=== PATIENT | female | born 1960 | race Caucasian/White ===

== ENCOUNTER 2021-03-07 20:04 | Inpatient (IN) ==
[2021-03-07] MEDS ORDERED: SODIUM CHLORIDE 0.9% 1000ML 2,000 ML IV SCH (21:00)
[2021-03-07 21:08] LABS: Basophils # (auto) 0.02 K/uL (0-0.2); Basophils % (auto) 0.1 %; Eosinophils # (auto) 0.05 K/uL (0-0.5); Eosinophils % (auto) 0.3 %; Hematocrit (blood only) 39.2 % (37-47); Hemoglobin 13.9 g/dL (12.0-16.0); Immature Granulocytes # (auto) 0.26 K/uL (0.00-0.02); Immature Granulocytes % (auto) 1.7 %; Lymphocytes # (auto) 2.32 K/uL (1.2-3.4); Lymphocytes % (auto) 14.9 %; Mean Corpuscular Hemoglobin 34.9 pg (25-34); Mean Corpuscular Hgb Conc 35.5 g/dL (32-36); Mean Corpuscular Volume 98.5 fL (80-100); Mean Platelet Volume 9.3 fL (7.4-10.4); Monocytes % (auto) 10.9 %; Neutrophils # (auto) 11.23 K/uL (1.4-6.5); Neutrophils % (auto) 72.1 %; Platelet Count 450 K/uL (130-400); RDW Coefficient of Variation 13.6 % (11.5-14.5); RDW Standard Deviation 49.5 fL (36.4-46.3); Red Blood Count 3.98 M/uL (4.2-5.4); White Blood Count 15.58 K/uL (4.8-10.8)
--- NOTE | 2021-03-07 21:32 | Emergency Department Note ---
History of Present Illness General Chief complaint: Hypotension Stated complaint: STOMACH PAINS, LOW BLOOD PRESSURE, DIARRHEA Time Seen by Provider: 03/07/21 20:38 Source: patient Mode of arrival: ambulatory Limitations: no limitations History of Present Illness Provider complaint: Low blood pressure/dizziness Maximum Pain Intensity: 2 61-year-old female presents to the ED with a chief complaint of decreased blood pressure and dizziness. The patient states that she had really bad diarrhea on Saturday and of last week. She states it was mostly watery. She states that she had gone about 30 times each of those days. She states that her diarrhea has decreased over the past several days and today she only had one episode of diarrhea this morning. She states that she has been feeling lightheaded especially with getting up. She came into the ED for evaluation tonight at the advice of her daughter who is a physician admissions assistant. Home Medications Medication Instructions Recorded Confirmed Type aspirin 81 mg tablet,delayed 81 mg PO DAILY 03/02/19 03/07/21 History release acetaminophen 500 mg tablet 500 - 1,000 mg PO DIRECTED PRN 04/14/19 03/07/21 History tab cholecalciferol (vitamin D3) 50 2,000 units PO DAILY cap 05/09/19 03/07/21 History mcg (2,000 unit) capsule cyanocobalamin (vitamin B-12) 500 500 mcg PO DAILY tab 05/09/19 03/07/21 History mcg tablet amlodipine 10 mg tablet 10 mg PO HS #90 tab 11/14/20 03/07/21 Rx telmisartan 80 mg tablet 80 mg PO DAILY #90 tab 11/14/20 03/07/21 Rx hydrochlorothiazide 25 mg tablet 25 mg PO DAILY #90 tab 11/23/20 03/07/21 Rx bupropion HCl 150 mg 24 hr tablet, 150 mg PO QAM #7 tab 12/05/20 03/07/21 Rx extended release escitalopram oxalate 10 mg tablet 10 mg PO DAILY #30 tab 12/05/20 03/07/21 Rx albuterol sulfate 90 mcg/actuation 2 puff INHALATION Q4H PRN #8.5 g 01/26/21 03/07/21 Rx aerosol inhaler metoprolol succinate 50 mg 50 mg PO DAILY #90 tab 03/01/21 03/07/21 Rx tablet,extended release 24 hr trazodone 50 mg tablet 50 mg PO HS #90 tab 03/01/21 03/07/21 Rx atorvastatin 20 mg PO HS 03/07/21 03/07/21 History Allergies Allergy/AdvReac Type Severity Reaction Status Date / Time aspirin AdvReac Intermediate HIGHER Verified 03/07/21 22:06 DOSES--HIVES, LOW DOSE--OK Past Med/Surg History Medical History (Updated 03/07/21 @ 23:43 by Barry Hsu DO) Abnormal glucose Abnormal mammography Abnormal TSH Allergic rhinitis Anxiety Arthritis Benign essential hypertension Dyslipidemia History of abnormal mammogram History of muscle pain Intra-articular fracture of distal end of radius with volar angulation Left wrist fracture Macrocytic anemia Surgical History H/O section History of tonsillectomy 1975 S/P dilation and curettage S/P tonsillectomy Family History Mother Hypertension Pancreatic cancer Father Hypertension Other Patient's mother is Denies family history of Colon cancer Ovarian cancer Prostate cancer Myocardial infarction Breast cancer Social History Smoking Status: Current every day smoker Tobacco Type: Cigarettes Age Started Using Tobacco: 15; packs per day: 1; Second Hand Exposure: No; Hx Alcohol Use: Yes Alcohol type: wine Alcohol Intake Frequency: 2-3 x/Week Alcohol Intake Frequency Comment: wine Hx Substance Use: No Preferred Language: [place] Communication Ability: Effective Visual Impairment: Limited Hearing Ability: Normal Derrick Helper Required: No Beliefs That Will Affect Care: None marital status: Current Living Situation: Spouse current occupational status: employed current occupation: [employer] How many Children do You have: 2 Feels Safe at Home: Yes Childhood Exposure to Second-Hand Smoke: No caffeine: Yes during the past year weight has: remained stable Dental Care, Regularly: Yes Physical Activity Frequency: Daily Seatbelt Use: always Sunscreen Use: Yes Review of Systems A total of 10 systems reviewed and were otherwise negative Physical Exam Vital Signs Vital Signs - 24 hr 03/07/21 20:07 03/07/21 20:09 03/07/21 20:46 Temperature 36.1 C L Temperature Source Temporal Artery Scan Pulse Rate 68 74 Pulse Rate from SpO2 Sensor 77 Respiratory Rate 20 23 Blood Pressure 77/54 L 93/46 L Blood Pressure [Left Arm] Blood Pressure Mean 61 61 Blood Pressure Mean [Left Arm] Pulse Oximetry 95 97 Oxygen Delivery Method Room Air Room Air Sepsis Recent Fever Within 48 Hours No Sepsis New/Unexplained Change in Mental Status No Sepsis Action Taken by Nursing No Action Required 03/07/21 20:53 03/07/21 21:11 03/07/21 23:12 Temperature Temperature Source Pulse Rate 72 72 Pulse Rate from SpO2 Sensor 72 78 Respiratory Rate 24 22 21 Blood Pressure 114/55 L 167/74 H Blood Pressure [Left Arm] 114/55 L Blood Pressure Mean 74 105 Blood Pressure Mean [Left Arm] 74 Pulse Oximetry 97 98 98 Oxygen Delivery Method Room Air Sepsis Recent Fever Within 48 Hours Sepsis New/Unexplained Change in Mental Status Sepsis Action Taken by Nursing CONSTITUTIONAL/VITAL SIGNS: Reviewed / noted above. GENERAL: Non-toxic in appearance. INTEGUMENTARY: Warm, dry, and [place]. HEAD: Normocephalic. EYES: without scleral icterus or trauma. ENT/OROPHARYNX: clear and moist. LYMPHADENOPATHY/NECK: Is supple without lymphadenopathy or meningismus. RESPIRATORY: Lungs clear and equal. CARDIOVASCULAR: Regular rate and rhythm. GI/ABDOMEN: Soft and nontender. No organomegaly or pulsatile mass. No rebound or guarding. Normal bowel sounds. EXTREMITIES: Warm and well perfused. BACK: No CVA tenderness. NEUROLOGICAL: Intact without focal deficits. PSYCHIATRIC: normal affect. MUSCULOSKELETAL: Normally developed with good muscle tone. TRIAGE NURSING DOCUMENTATION REVIEWED. Course Administered Medications Discontinued Medications Sodium Chloride (Nss 1000ml) 2,000 mls @ 999 mls/hr IV .Q2H1M [facility] Stop: 03/07/21 23:00 Last Admin: 03/07/21 21:12 Dose: 999 mls/hr Documented by: [id number] Magnesium Sulfate/Dextrose (Magnesium Sulfate / D5w) 1 gm in 100 mls @ 100 mls/hr IV NOW STA Stop: 03/07/21 22:59 Last Infusion: 03/07/21 23:20 Dose: 0 mls/hr Documented by: [id number] Admin: 03/07/21 22:16 Dose: 100 mls/hr Documented by: [id number] Potassium Chloride (Potassium Chloride 10 Meq Tabcr) 40 meq PO NOW STA Stop: 03/07/21 22:15 Last Admin: 03/07/21 22:19 Dose: 40 meq Documented by: [id number] Critical Care Time Critical Care Time: Yes Total Critical Care Time: 30 I have personally spent 30 minutes of critical care time in the direct francesca gement of this patient. This includes bedside care, interpretation of diagnostic studies, and testing, discussion with consultants, patient, and family members, and other required patient management activities. This 30 minutes is in excess of all separately billable procedures. Medical Decision Making Differential Diagnosis Differential includes acute coronary syndrome, myocardial infarction, CVA, TIA, anemia, infection, pneumonia, UTI, pyelonephritis, poor nutrition, dehydration, electrolyte disturbance,hypoglycemia. Medical Records Attestation: I reviewed the patient's medical records. Home Medications Current Medication List: was personally reviewed by me Laboratory Data Attestation: I reviewed the patient's lab results. Result diagrams: 03/07/21 21:00 03/07/21 21:00 Lab Results 03/07/21 03/07/21 03/07/21 Range/Units 21:00 21:00 21:00 WBC 15.58 H (4.8-10.8) K/uL RBC 3.98 L (4.2-5.4) M/uL Hgb 13.9 (12.0-16.0) g/dL Hct 39.2 (37-47) % MCV 98.5 (80-100) fL MCH 34.9 H (25-34) pg MCHC 35.5 (32-36) g/dL RDW Std Deviation 49.5 H (36.4-46.3) fL RDW Coeff of Man 13.6 (11.5-14.5) % Plt Count 450 H (130-400) K/uL MPV 9.3 (7.4-10.4) fL Immature Gran % (Auto) 1.7 % Neut % (Auto) 72.1 % Lymph % (Auto) 14.9 % [place] % (Auto) 10.9 % Eos % (Auto) 0.3 % Baso % (Auto) 0.1 % Neut # (Auto) 11.23 H (1.4-6.5) K/uL Lymph # (Auto) 2.32 (1.2-3.4) K/uL [place] # (Auto) 1.70 H (0.11-0.59) K/uL Eos # (Auto) 0.05 (0-0.5) K/uL Baso # (Auto) 0.02 (0-0.2) K/uL Immature Gran # (Auto) 0.26 H (0.00-0.02) K/uL Sodium 131 L (136-145) mmol/L Potassium 3.0 L (3.5-5.1) mmol/L Chloride 99 (98-107) mmol/L Carbon Dioxide 16 L (21-32) mmol/L Anion Gap 16.0 H (3-11) BUN 63 H (7-18) mg/dl Creatinine 4.70 H* (0.6-1.2) mg/dl Est Cr Clr Drug Dosing 10.6 ml/min Est GFR ( Amer) 10.7 ml/min Est GFR (Non-Af Amer) 9.2 ml/min BUN/Creatinine Ratio 13.3 (10-20) Glucose 131 H (70-99) mg/dl Calcium 9.1 (8.5-10.1) mg/dl Magnesium 0.9 L* (1.8-2.4) mg/dl Total Bilirubin 1.0 (0.2-1) mg/dl AST 1733 H (15-37) U/L ALT 1844 H (12-78) U/L Alkaline Phosphatase 104 (45-117) U/L Total Creatine Kinase 108 (26-192) U/L Troponin I < 0.015 (0-0.045) ng/ml Total Protein 8.0 (6.4-8.2) gm/dl Albumin 3.8 (3.4-5.0) gm/dl Globulin 4.2 H (2.5-4.0) gm/dl Albumin/Globulin Ratio 0.9 (0.9-2) Lipase 1007 H (73-393) U/L TSH 0.707 (0.300-4.500) uIu/ml COVID-19 Eval Order SARS-CoV-2 (PCR) (Negative) 03/07/21 03/07/21 Range/Units 22:25 22:25 WBC (4.8-10.8) K/uL RBC (4.2-5.4) M/uL Hgb (12.0-16.0) g/dL Hct (37-47) % MCV (80-100) fL MCH (25-34) pg MCHC (32-36) g/dL RDW Std Deviation (36.4-46.3) fL RDW Coeff of Man (11.5-14.5) % Plt Count (130-400) K/uL MPV (7.4-10.4) fL Immature Gran % (Auto) % Neut % (Auto) % Lymph % (Auto) % [place] % (Auto) % Eos % (Auto) % Baso % (Auto) % Neut # (Auto) (1.4-6.5) K/uL Lymph # (Auto) (1.2-3.4) K/uL [place] # (Auto) (0.11-0.59) K/uL Eos # (Auto) (0-0.5) K/uL Baso # (Auto) (0-0.2) K/uL Immature Gran # (Auto) (0.00-0.02) K/uL Sodium (136-145) mmol/L Potassium (3.5-5.1) mmol/L Chloride (98-107) mmol/L Carbon Dioxide (21-32) mmol/L Anion Gap (3-11) BUN (7-18) mg/dl Creatinine (0.6-1.2) mg/dl Est Cr Clr Drug Dosing ml/min Est GFR ( Amer) ml/min Est GFR (Non-Af Amer) ml/min BUN/Creatinine Ratio (10-20) Glucose (70-99) mg/dl Calcium (8.5-10.1) mg/dl Magnesium (1.8-2.4) mg/dl Total Bilirubin (0.2-1) mg/dl AST (15-37) U/L ALT (12-78) U/L Alkaline Phosphatase (45-117) U/L Total Creatine Kinase (26-192) U/L Troponin I (0-0.045) ng/ml Total Protein (6.4-8.2) gm/dl Albumin (3.4-5.0) gm/dl Globulin (2.5-4.0) gm/dl Albumin/Globulin Ratio (0.9-2) Lipase (73-393) U/L TSH (0.300-4.500) uIu/ml COVID-19 Eval Order Covid19 at [facility] SARS-CoV-2 (PCR) NEGATIVE (Negative) Imaging Data Radiologist's Impression: CT scan of the abdomen pelvis shows gallbladder sludge. Hypodensities in the liver measuring up to 1.2 cm. ECG Data Attestation: I personally reviewed and interpreted this ECG as follows: Indication: + weakness Rate (beats per minute): 78 Rhythm: + normal sinus ECG Intervals/blocks: + Normal QT-c ECG ST segments: + T-wave inversions (Inferior and lateral) ECG Findings: no PVCs Blood Pressure Blood Pressure Findings: Low blood pressure MDM Narrative Patient presents to the ED with orthostatic hypotension. Her blood pressure dropped to 64 systolic standing from 90 lying. Her main complaint was diarrhea over the past less than week. Twelve-lead EKG shows a normal sinus rhythm with a rate of 78. T wave inversions noted in the inferior lateral leads. White blood cell count is 15.5. Potassium is 3. Anion gap is 16. BUN is 63. Creatinine is 4.7. Magnesium is 0.9. Troponin was negative. AST and ALT are 17 [address]. Lipase was 1000. CT scan of the abdomen pelvis shows some gallbladder sludge. The patient was told the results of the test. She was given 2 L normal saline IV here in the ED. She was given some IV magnesium and some oral potassium. The patient will be seen by the hospitalist for further inpatient evaluation and care. The patient reports that she does take Tylenol regularly and drinks a moderate amount of alcohol about twice a week. Impression & Plan Acute renal failure, Acute dehydration, Diarrhea, Transaminitis, Hypomagnesemia, Acute hypokalemia Discharge Plan Visit Data Chief Complaint: Hypotension Stated Complaint: STOMACH PAINS, LOW BLOOD PRESSURE, DIARRHEA ED Provider: Barry Hsu Discharge Problem: Acute renal failure, Acute dehydration, Diarrhea, Transaminitis, Hypomagnesemia, Acute hypokalemia Patient Disposition: Being Evaluated by Hospitalist Forms Stand Alone Forms: My [facility] [employer] Prescriptions Prescriptions: No Action amlodipine 10 mg tablet 10 mg PO HS Qty: 90 RF: 1 telmisartan 80 mg tablet 80 mg PO DAILY Qty: 90 RF: 1 hydrochlorothiazide 25 mg tablet 25 mg PO DAILY Qty: 90 RF: 1 albuterol sulfate 90 mcg/actuation HFA aerosol inhaler 2 puff inhalation Q4H PRN (Reason: shortness of breath) Qty: 8.5 RF: 3 metoprolol succinate 50 mg tablet extended release 24 hr 50 mg PO DAILY Qty: 90 RF: 1 trazodone 50 mg tablet 50 mg PO HS Qty: 90 RF: 1 aspirin [Adult Low Dose Aspirin] 81 mg tablet,delayed release (DR/EC) 81 mg PO DAILY RF: 0 acetaminophen 500 mg tablet 500 - 1,000 mg PO DIRECTED PRN (Reason: fever or pain) RF: 0 cyanocobalamin (vitamin B-12) 500 mcg tablet 500 mcg PO DAILY RF: 0 cholecalciferol (vitamin D3) 2,000 unit capsule 2,000 units PO DAILY RF: 0 escitalopram oxalate 10 mg tablet 10 mg PO DAILY Qty: 30 RF: 2 bupropion HCl 150 mg tablet extended release 24 hr 150 mg PO QAM Qty: 7 RF: 0 atorvastatin 20 mg tablet 20 mg PO HS RF: 0 Referrals Referrals: Vicki Mckeon DO [Primary Care Provider] - Discharge Problem: Acute renal failure Qualifiers: Acute renal failure type: unspecified Qualified Code(s): N17.9 - Acute kidney failure, unspecified Diarrhea Qualifiers: Diarrhea type: unspecified type Qualified Code(s): R19.7 - Diarrhea, unspecified
[2021-03-07 21:38] LABS: Alanine Aminotransferase 1844 U/L (12-78); Albumin Globulin Ratio 0.9 (0.9-2); Albumin Level 3.8 gm/dl (3.4-5.0); Alkaline Phosphatase 104 U/L (45-117); Aspartate Aminotransferase 1733 U/L (15-37); BUN Creatinine Ratio 13.3 (10-20); Blood Urea Nitrogen 63 mg/dl (7-18); Calcium 9.1 mg/dl (8.5-10.1); Carbon Dioxide 16 mmol/L (21-32); Chloride 99 mmol/L (98-107); Creatine Kinase 108 U/L (26-192); Creatinine Clr Calc Pharmacy 10.6 ml/min; Est GFR (African American) 10.7 ml/min; Est GFR (Non-African American) 9.2 ml/min; Globulin 4.2 gm/dl (2.5-4.0); Glucose 131 mg/dl (70-99); Magnesium 0.9 mg/dl (1.8-2.4); Sodium 131 mmol/L (136-145); Thyroid Stimulating Hormone 0.707 uIu/ml (0.300-4.500); Troponin I < 0.015 ng/ml (0-0.045)
[2021-03-07] MEDS ORDERED: MAGNESIUM SULFATE / D5W 1 GM/100 ML BAG IV STA (22:00)
[2021-03-07] MEDS ORDERED: POTASSIUM CHLORIDE 10 MEQ TABCR PO STA (22:14)
--- NOTE | 2021-03-07 23:42 | History & Physical Report ---
Date of Service March 07, 2021 Assessment & Plan (1) Gallbladder sludge: Gallbladder sludge noted on CT/transaminitis/right upper quadrant pain radiating toward the back/ elevated lipase- Likely acalculus gallstone pancreatitis NPO Order HIDA scan NM Liver lesions up to 1.2 cm in size noted on CT Unable to order MRCP due to acute renal failure Zosyn 4.5 g IV every 8 hours Famotidine 20 mg IV every 12 hours Follow serial CBC with differential, chemistry profile and lipase levels Present on Admission?: Yes (2) Transaminitis: See above Present on Admission?: Yes (3) Pancreatitis: See above Present on Admission?: Yes (4) Benign essential hypertension: Hold amlodipine, aspirin, metoprolol succinate and telmisartan while n.p.o. Present on Admission?: Yes (5) Dyslipidemia: While n.p.o., hold atorvastatin Present on Admission?: Yes (6) Depression: While n.p.o., hold Lexapro, bupropion and trazodone Present on Admission?: Yes (7) COPD (chronic obstructive pulmonary disease): COPD/tobacco use disorder- Placed on NicoDerm patch 14 mg daily DuoNebs every 2 hours as needed Present on Admission?: Yes (8) Acute renal failure: Hold HCTZ and telmisartan. Acute renal failure likely a combination of prerenal state due to diarrhea, will continue to take HCTZ and telmisartan. Creatinine 4.70 upon admission, with baseline 0.96 Follow daily BMP Present on Admission?: Yes (9) Acute hypokalemia: Given a one-time dose of Klor-Con 40 mEq by the ED. Hold on additional replacement due to elevated creatinine Repeat BMP in a.m. Present on Admission?: Yes History of Present Illness Chief Complaint: The patient presents to the emergency department with complaint of low blood pressure, dizziness, right upper quadrant abdominal pain which radiates around to the side and back, and has had diarrhea over the past week. Primary Care Provider: Vicki Mckeon DO The patient is a 61-year-old female with a past medical history including intra- articular fracture of the distal end of the left radius with volar angulation, macrocytic anemia, dyslipidemia, hypertension, anxiety, allergic rhinitis and arthritis. She presents with symptoms as noted above. She reports that she has had right upper quadrant and right sided back pain on and off for 5 years. She came to the emergency department today at the insistence of her daughter, who is a PA. Work-up in the emergency department included the following significant abnormal laboratories: WBC 15.58, sodium 131, potassium 3.0, creatinine 4.70, BUN 63, AST 1733, ALT 1844, lipase 1007, magnesium 0.9. Imaging studies: CT of abdomen and pelvis without contrast revealed the foll owing: Gallbladder sludge. Hypodensities in the liver measuring up to 1.2 cm that are indeterminate, with recommendation for liver protocol CT or MRI on a nonemergent basis. Allergies Allergy/AdvReac Type Severity Reaction Status Date / Time aspirin AdvReac Intermediate HIGHER Verified 03/07/21 22:06 DOSES--HIVES, LOW DOSE--OK Home Medications Medication Instructions Recorded Confirmed Type aspirin 81 mg tablet,delayed 81 mg PO DAILY 03/02/19 03/07/21 History release acetaminophen 500 mg tablet 500 - 1,000 mg PO DIRECTED PRN 04/14/19 03/07/21 History tab cholecalciferol (vitamin D3) 50 2,000 units PO DAILY cap 05/09/19 03/07/21 History mcg (2,000 unit) capsule cyanocobalamin (vitamin B-12) 500 500 mcg PO DAILY tab 05/09/19 03/07/21 History mcg tablet amlodipine 10 mg tablet 10 mg PO HS #90 tab 11/14/20 03/07/21 Rx telmisartan 80 mg tablet 80 mg PO DAILY #90 tab 11/14/20 03/07/21 Rx hydrochlorothiazide 25 mg tablet 25 mg PO DAILY #90 tab 11/23/20 03/07/21 Rx bupropion HCl 150 mg 24 hr tablet, 150 mg PO QAM #7 tab 12/05/20 03/07/21 Rx extended release escitalopram oxalate 10 mg tablet 10 mg PO DAILY #30 tab 12/05/20 03/07/21 Rx albuterol sulfate 90 mcg/actuation 2 puff INHALATION Q4H PRN #8.5 g 01/26/21 03/07/21 Rx aerosol inhaler metoprolol succinate 50 mg 50 mg PO DAILY #90 tab 03/01/21 03/07/21 Rx tablet,extended release 24 hr trazodone 50 mg tablet 50 mg PO HS #90 tab 03/01/21 03/07/21 Rx atorvastatin 20 mg PO HS 03/07/21 03/07/21 History Past Med/Surg History Medical History (Updated 03/08/21 @ 00:22 by Terrance Retana MD) Abnormal glucose Abnormal mammography Abnormal TSH Allergic rhinitis Anxiety Arthritis Benign essential hypertension Dyslipidemia History of abnormal mammogram History of muscle pain Intra-articular fracture of distal end of radius with volar angulation Left wrist fracture Macrocytic anemia Surgical History H/O section History of tonsillectomy 1975 S/P dilation and curettage S/P tonsillectomy Family History Mother Hypertension Pancreatic cancer Father Hypertension Other Patient's mother is Denies family history of Colon cancer Ovarian cancer Prostate cancer Myocardial infarction Breast cancer Social History Smoking Status: Current every day smoker Tobacco Type: Cigarettes Age Started Using Tobacco: 15; packs per day: 1; Second Hand Exposure: No; Hx Alcohol Use: Yes Alcohol type: wine Alcohol Intake Frequency: 2-3 x/Week Alcohol Intake Frequency Comment: wine Hx Substance Use: No Preferred Language: Faroese Communication Ability: Effective Visual Impairment: Limited Hearing Ability: Normal Creative Arts Music Therapist Required: No Beliefs That Will Affect Care: None marital status: Current Living Situation: Spouse current occupational status: employed 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 How many Children do You have: 2 Feels Safe at Home: Yes Childhood Exposure to Second-Hand Smoke: No caffeine: Yes during the past year weight has: remained stable Dental Care, Regularly: Yes Physical Activity Frequency: Daily Seatbelt Use: always Sunscreen Use: Yes Review of Systems Review of Systems: The patient denies chest pain, palpitations, shortness of breath, dyspnea on exertion, cough, lower extremity swelling, sore throat, fevers, chills, sweats, nausea, vomiting, pelvic pain, blood in urine or stool, dysuria, urinary frequency or urgency, lightheadedness, dizziness, headache, memory loss, loss of consciousness, rash, abnormal bruising or bleeding, imbalance, focal or generalized weakness, numbness or tingling in arms or legs, neck pain, or night sweats. The review of systems is otherwise negative other than for that already noted above, and at least 10 systems have been reviewed. Physical Exam Physical Exam: The patient is awake, alert and oriented 3, well developed and well nourished, normocephalic and atraumatic, lying in bed and in no acute distress. HEENT--PERRL, EOMI, mucous membranes and oropharynx dry. Neck--supple. No JVD. No bruits. Thyroid normal, trachea midline, no adenopathy. Heart--normal S1 and S2. No murmurs, rubs or gallops. Lungs--clear bilaterally, no respiratory distress, no accessory muscle use. Abdomen--normal bowel sounds and soft. Nontender. Nondistended, no hernias or masses, no organomegaly. Extremities--no cyanosis or clubbing. No edema. Dermatologic--normal skin turgor, normal color, no abnormal lymph nodes, no rash. Neurologic--cranial nerves II through XII grossly intact. Rheumatologic--normal range of motion. Psychiatric--normal affect. Results & Data Results & Data ([facility]) Vital Signs (Past 12 Hours) Vital Signs Temp Pulse Resp BP BP Pulse Ox 03/07/21 23:12 21 167/74 H 98 03/07/21 21:11 72 22 114/55 L 114/55 L 98 03/07/21 20:53 72 24 97 03/07/21 20:46 74 23 93/46 L 97 03/07/21 20:09 97.0 F L 68 20 77/54 L 95 Laboratory Results Laboratory Results WBC 15.58 K/uL (4.8-10.8) H 03/07/21 21:00 RBC 3.98 M/uL (4.2-5.4) L 03/07/21 21:00 Hgb 13.9 g/dL (12.0-16.0) 03/07/21 21:00 Hct 39.2 % (37-47) 03/07/21 21:00 MCV 98.5 fL (80-100) 03/07/21 21:00 MCH 34.9 pg (25-34) H 03/07/21 21:00 MCHC 35.5 g/dL (32-36) 03/07/21 21:00 RDW Std Deviation 49.5 fL (36.4-46.3) H 03/07/21 21:00 RDW Coeff of Man 13.6 % (11.5-14.5) 03/07/21 21:00 Plt Count 450 K/uL (130-400) H 03/07/21 21:00 MPV 9.3 fL (7.4-10.4) 03/07/21 21:00 Immature Gran % (Auto) 1.7 % 03/07/21 21:00 Neut % (Auto) 72.1 % 03/07/21 21:00 Lymph % (Auto) 14.9 % 03/07/21 21:00 [place] % (Auto) 10.9 % 03/07/21 21:00 Eos % (Auto) 0.3 % 03/07/21 21:00 Baso % (Auto) 0.1 % 03/07/21 21:00 Neut # (Auto) 11.23 K/uL (1.4-6.5) H 03/07/21 21:00 Lymph # (Auto) 2.32 K/uL (1.2-3.4) 03/07/21 21:00 [place] # (Auto) 1.70 K/uL (0.11-0.59) H 03/07/21 21:00 Eos # (Auto) 0.05 K/uL (0-0.5) 03/07/21 21:00 Baso # (Auto) 0.02 K/uL (0-0.2) 03/07/21 21:00 Immature Gran # (Auto) 0.26 K/uL (0.00-0.02) H 03/07/21 21:00 Sodium 131 mmol/L (136-145) L 03/07/21 21:00 Potassium 3.0 mmol/L (3.5-5.1) L 03/07/21 21:00 Chloride 99 mmol/L (98-107) 03/07/21 21:00 Carbon Dioxide 16 mmol/L (21-32) L 03/07/21 21:00 Anion Gap 16.0 (3-11) H 03/07/21 21:00 BUN 63 mg/dl (7-18) H 03/07/21 21:00 Creatinine 4.70 mg/dl (0.6-1.2) H* 03/07/21 21:00 Est Cr Clr Drug Dosing 10.6 ml/min 03/07/21 21:00 Est GFR ( Amer) 10.7 ml/min 03/07/21 21:00 Est GFR (Non-Af Amer) 9.2 ml/min 03/07/21 21:00 BUN/Creatinine Ratio 13.3 (10-20) 03/07/21 21:00 Glucose 131 mg/dl (70-99) H 03/07/21 21:00 Calcium 9.1 mg/dl (8.5-10.1) 03/07/21 21:00 Magnesium 0.9 mg/dl (1.8-2.4) L* 03/07/21 21:00 Total Bilirubin 1.0 mg/dl (0.2-1) 03/07/21 21:00 AST 1733 U/L (15-37) H 03/07/21 21:00 ALT 1844 U/L (12-78) H 03/07/21 21:00 Alkaline Phosphatase 104 U/L (45-117) 03/07/21 21:00 Total Creatine Kinase 108 U/L (26-192) 03/07/21 21:00 Troponin I < 0.015 ng/ml (0-0.045) 03/07/21 21:00 Total Protein 8.0 gm/dl (6.4-8.2) 03/07/21 21:00 Albumin 3.8 gm/dl (3.4-5.0) 03/07/21 21:00 Globulin 4.2 gm/dl (2.5-4.0) H 03/07/21 21:00 Albumin/Globulin Ratio 0.9 (0.9-2) 03/07/21 21:00 Lipase 1007 U/L (73-393) H 03/07/21 21:00 TSH 0.707 uIu/ml (0.300-4.500) 03/07/21 21:00 COVID-19 Eval Order Covid19 at [facility] 03/07/21 22:25 SARS-CoV-2 (PCR) NEGATIVE (Negative) 03/07/21 22:25 Diagnostic Findings [facility] Patient: YAMILETH GUTIÉRREZ (Female) : 56 Status: ER Date: 03/07/21 22:54 Room #: History: EPIGASTRIC PAIN, VOMITING 2 TIMES Slices: [phone] Priors: Tech: Ron Fountain @ [phone] Exams: CT ABDOMEN & PELVIS Without Contrast Contrast: Accession Numbers: [id number] Preliminary Findings Only See Final Report For Complete Findings CT ABDOMEN & PELVIS Without Contrast: Gallbladder sludge. Hypodensities in the liver measure up to 1.2 cm. These are indeterminate. Recommend liver protocol CT or MRI for further evaluation on a nonemergent basis. The solid organs are otherwise within normal limits. No obstruction. Normal appendix. No fracture. Radiologist: Genny Montalvo MD Study ready at 23:00 and initial results transmitted at 23:31 *This report constitutes a preliminary interpretation only. Non-acute findings felt to be unrelated to the clinical presentation may not be discussed in this report. The study will be interpreted and a final report will be generated by the local Radiologist the following shift. To reach the hospital radiology department call [phone]. If a discrepancy is found between the preliminary and final interpretations of this study, please notify us via our Client Portal at [email or web address].You can also fax this report with a description of the discrepancy, or include the final report, to our daytime fax number [phone].If faxing, please indicate the severity of discrepancy using one of the following categories: [ ] 1 - Agree/Informational [ ] 2 - Unlikely to Affect Management [ ] 3 - Possible Eventual Change of Management [ ] 4 - Probable Immediate Change of Management For all other patient related information, please fax us at [phone]. [id number] Code Status & VTE Plan Code Status Full code VTE Prophylaxis Plan VTE Prophylaxis will be ordered: Yes PG Care Time/CCT Total # of Minutes Spent Total Time Spent with Patient: Total time spent is greater than 50% in coordination of care (as documented) at patient's floor/unit and/or counseling patient: Coding Level of Care Code 62245 Initial Inpt Care Lvl 3 Diagnoses Gallbladder sludge K82.8 Transaminitis R74.01 Pancreatitis K85.90 Benign essential hypertension I10 Dyslipidemia E78.5 Depression F32.9 COPD (chronic obstructive pulmonary disease) J44.9 Acute renal failure N17.9 Acute renal failure type: unspecified Acute hypokalemia E87.6 (1) Acute renal failure Acute renal failure type: unspecified Qualified Code(s): N17.9 - Acute kidney failure, unspecified
[2021-03-08] MEDS ORDERED: PIPERACILL/TAZOBAC CONSULT ACTIVE PRN
[2021-03-08] MEDS ORDERED: ALBUT/IPRATROP 3MG/0.5MG NEB 3 ML VIAL NEB PRN (00:24)
[2021-03-08 00:29] LABS: Appearance Urine Clear (Clear); Bacteria Urine Automated Negative (Negative); Bilirubin Urine 1+ (Negative); Blood Urine Trace (Negative); Color Urine Dark Yellow; Epithelial Cell Urine Auto >30 /lpf (0-5); Glucose Urine UA Negative (Negative); Ketones Urine Trace (Negative); Leukocyte Esterase Urine Negative (Negative); Nitrite Urine Negative (Negative); Protein Urine 2+ (Negative); Specific Gravity Urine 1.027 (1.000-1.030); Urobilinogen Urine Negative (Negative)
[2021-03-08] MEDS ORDERED: PIPERACILLIN/TAZOBACTAM 4.5 GM in DEXTROSE 5% 100 ML IV ONE (00:30)
[2021-03-08] MEDS ORDERED: ONDANSETRON INJ 2 MG/ML 2 ML VIAL IV PRN (00:57)
[2021-03-08 01:02] LABS: Cast Urine Automated >30 /lpf (0-5)
[2021-03-08 01:03] LABS: Calcium Oxalate Crystals Urine Present (None Prsent); RBC Urine Automated 0-4 /hpf (0-4)
[2021-03-08] MEDS: SODIUM CHLORIDE 0.9% 1000ML 1,000 ML IV SCH ×2 (01:04→08:33)
[2021-03-08] MEDS ORDERED: MoRPHine SULFATE 2 MG/ML CARP IV PRN (01:26)
[2021-03-08] MEDS: FAMOTIDINE 20 MG in SYRINGE 3 ML IV SCH ×2 (05:44→17:26)
[2021-03-08 06:17] LABS: Basophils # (auto) 0.02 K/uL (0-0.2); Basophils % (auto) 0.1 %; Eosinophils # (auto) 0.12 K/uL (0-0.5); Eosinophils % (auto) 0.9 %; Hematocrit (blood only) 34.5 % (37-47); Hemoglobin 12.3 g/dL (12.0-16.0); Immature Granulocytes # (auto) 0.17 K/uL (0.00-0.02); Immature Granulocytes % (auto) 1.3 %; Lymphocytes % (auto) 19.9 %; Mean Corpuscular Hemoglobin 34.3 pg (25-34); Mean Corpuscular Hgb Conc 35.7 g/dL (32-36); Mean Corpuscular Volume 96.1 fL (80-100); Mean Platelet Volume 9.4 fL (7.4-10.4); Monocytes # (auto) 1.24 K/uL (0.11-0.59); Monocytes % (auto) 9.1 %; Neutrophils # (auto) 9.33 K/uL (1.4-6.5); Neutrophils % (auto) 68.7 %; Platelet Count 393 K/uL (130-400); RDW Coefficient of Variation 13.7 % (11.5-14.5); RDW Standard Deviation 48.5 fL (36.4-46.3); Red Blood Count 3.59 M/uL (4.2-5.4); White Blood Count 13.58 K/uL (4.8-10.8)
[2021-03-08 06:45] LABS: Albumin Level 3.1 gm/dl (3.4-5.0); BUN Creatinine Ratio 19.4 (10-20); Calcium 8.4 mg/dl (8.5-10.1); Est GFR (African American) 18.1 ml/min; Est GFR (Non-African American) 15.6 ml/min; Magnesium 1.4 mg/dl (1.8-2.4); Potassium 3.8 mmol/L (3.5-5.1)
[2021-03-08 07:07] LABS: Albumin Globulin Ratio 0.9 (0.9-2); Bilirubin,Total 0.8 mg/dl (0.2-1); Globulin 3.5 gm/dl (2.5-4.0); Total Protein 6.6 gm/dl (6.4-8.2)
--- NOTE | 2021-03-08 07:39 | CT Scan Report ---
ABDOMEN AND PELVIS CT WITHOUT CONTRAST CT DOSE: 295.41 mGy.cm HISTORY: transaminitis, elevated lipase , acute renal failure TECHNIQUE: Multiaxial CT images of the abdomen and pelvis were performed without contrast. A dose lo wering technique was utilized adhering to the principles of ALARA. COMPARISON STUDY: None. FINDINGS: There is mild superior endplate compression deformity at L1. This is likely chronic. The teagan ng bases are clear. No pneumoperitoneum. No pneumatosis. There are 2 hypodensities within the liver w ith the largest in the left hepatic lobe measuring 1.2 cm. These are incompletely characterized on th is noncontrast study but statistically represent benign lesions. The unenhanced spleen, adrenal gland s, pancreas, and kidneys are within normal limits. No hydronephrosis. Mild calcified plaque within th e normal caliber abdominal aorta. No retroperitoneal lymphadenopathy. The bladder, uterus, bilateral adnexa are within normal limits. There are suboptimal evaluation for bowel pathology due to the lack of intravenous and oral contrast. However, there is no definite bowel wall thickening or obstruction. Normal appendix. A few colonic diverticula. No evidence for acute diverticulitis. Questionable minim al fat stranding adjacent to the cecum is likely secondary to the normal mesenteric vessels. IMPRESSION: 1. No renal or ureteral stones. No hydronephrosis. 2. No definite bowel wall thickening or obstruction. 3. Normal appendix. 4. Additional findings as described above. ACT 112: Negative or not required by law. Electronically signed by: Chavez Silva M.D. 03/08/2021 7:38 AM
[2021-03-08] MEDS: CYANOCOBALAMIN 500 MCG TABLET (VITAMIN B-12) PO SCH (08:33)
[2021-03-08] MEDS: CHOLECALCIFEROL 1,000 UNITS 25 MCG TAB PO SCH (08:34)
[2021-03-08] MEDS: buPROPion XL 150 MG TABCR PO SCH (08:34)
[2021-03-08] MEDS: ASPIRIN 81 MG ECTAB PO SCH (08:34)
[2021-03-08] MEDS: NICOTINE 14 MG/24 HR PATCH TD SCH (08:35)
[2021-03-08] MEDS: HEPARIN SOD 5,000 UNIT/0.5 ML VIAL SQ SCH ×2 (08:36→21:19)
[2021-03-08] MEDS: LACTATED RINGER'S 1,000 ML IV SCH ×2 (08:50→17:26)
[2021-03-08] MEDS ORDERED: ESCITALOPRAM OXALATE 10 MG TAB PO SCH (09:00)
[2021-03-08] MEDS ORDERED: METOPROLOL SUCC 50MG EXT REL TAB PO SCH (09:00)
[2021-03-08] MEDS: MAGNESIUM SULFATE / D5W 1 GM/100 ML BAG IV SCH ×2 (09:18→11:29)
[2021-03-08 09:52] LABS: Hepatitis B Surf Ag Rflx Conf Neg (Neg)
[2021-03-08] MEDS: PIPERACILLIN/TAZOBACTAM 3.375 GM in DEXTROSE 5% 100 ML IV SCH ×2 (10:08→21:19)
[2021-03-08 10:20] LABS: Hepatitis C IgG 13Yrs+Old_Rflx Neg (Neg)
--- NOTE | 2021-03-08 11:22 | Hospitalist Progress Note ---
Date of Service March 08, 2021 Assessment & Plan (1) Transaminitis: Plan: Presented to the ER with 1 week of severe diarrhea, lightheadedness, hypotension She was found to have severely elevated AST and ALT as well as acute kidney injury Hepatitis panel is pending, nonobstructive picture CT abdomen/pelvis only with gallbladder sludge noted on overnight radiology read but otherwise normal except for 1.2 cm lesions in the liver that are indeterminate The patient has no abdominal pain at all Most likely secondary to acute liver injury from hypotension secondary to hypovolemia from severe diarrhea Tylenol level is 4 -Follow hepatitis panel -Follow LFTs -Supportive care and maintain blood pressure-continue IV fluids but change to LR at 125 an hour -Hold all home antihypertensives -INR 1.2, platelets normal, creatinine improving -HIDA scan performed which is negative -Continue Zosyn empirically through the night given leukocytosis but most likely no infection -Appreciate GI consultation -Holding atorvastatin -Okay to give Tylenol up to 2 g/day as needed for headache (2) Acute renal failure: Plan: Acute kidney failure with ATN Secondary to hypovolemia from severe diarrhea Creatinine 4.7 on arrival and already down to 3.04 with IV fluid hydration Continue IV fluids Follow BMP Renally dose medications as appropriate -Hold home telmisartan and HCTZ (3) Hypomagnesemia: Plan: Severe at 0.9 on admission, secondary to significant diarrhea Improved somewhat but still low at 1.4 today Continue replacement with IV magnesium sulfate 2 g Follow magnesium level in the morning (4) Diarrhea: Plan: As noted above, with 6 to 7 days of severe diarrhea No recent travel, camping, eating out at restaurants, sick contacts. Covid-19 is negative Could be infectious most likely -Check stool culture, C. difficile, ova and parasites Seems to be resolving Supportive care, electrolyte replacement (5) Acute hypokalemia: Plan: Secondary to GI losses Replace and follow BMP Replacing magnesium (6) Elevated lipase: Plan: Lipase elevated at 1000 No pancreatitis seen on CT of the abdomen/pelvis Most likely elevation secondary to hypoperfusion from hypotension Has no abdominal pain Okay to advance diet as tolerated (7) Gallbladder sludge: Plan: HIDA scan negative As above (8) Benign essential hypertension: Plan: With hypotension in the 70s systolic on arrival Hold home antihypertensives Giving IV fluids (9) Dyslipidemia: Plan: Holding home statin for transaminitis (10) Depression: Plan: Continue home meds (11) COPD (chronic obstructive pulmonary disease): Plan: No acute issues Smoking cessation counseling Nicotine patch as needed Inhalers as needed (12) DVT prophylaxis: Plan: Heparin SQ Disposition-continued stay (13) Abnormal CT of liver: Admission and Anticipated Discharge Date Admission Date: March 07, 2021 Subjective Patient reports feeling hungry, denies any abdominal pain. She reports she has had 6 to 7 days of severe nonbloody, nonmelena diarrhea at home and lighthe adedness with blood pressures in the 80s yesterday when she measured it at home. She denies any chest pain or shortness of breath. No nausea or vomiting except for one time last week. She had some chills 1 week ago but that was it. No recent travel or eating out at restaurants. No camping. Nobody around her has been sick. She does have a mild headache today. She is already feeling significantly improved since admission. She does report receiving 2 units of blood transfused after the of her child 30+ years ago I discussed her case with GI. Telemetry normal sinus rhythm with rates in the 70s. Review of Systems Review of Systems: All systems reviewed & are unremarkable except as noted in HPI & below Physical Exam Constitutional: WD/WN, vitals as above Eyes: PERRL, conjunctivae normal, anicteric sclerae ENMT: external ear and nose normal, oropharynx normal Neck: trachea midline, no thyromegaly Respiratory: normal respiratory effort, lungs clear to auscultation Cardiovascular: RRR, no murmur, no edema Chest (Breasts): Chest: normal inspection of chest Gastrointestinal (Abdomen): normal bowel sounds, soft, nontender, no hepatosplenomegaly Musculoskeletal: Extremities: extremities normal to inspection; no cyanosis and no clubbing Skin: no rashes, warm and dry Neurologic: moves all extremities and awake; no focal motor deficits Psychiatric: A+Ox3, euthymic affect Lymphatic: no lymphedema Results & Data Results & Data ([facility]) Vital Signs (Past 12 Hours) Vital Signs Temp Pulse Pulse Resp BP BP Pulse Ox 03/08/21 11:03 36.7 C 68 18 96/62 L 97 03/08/21 07:57 71 03/08/21 07:19 36.8 C 78 20 102/63 97 03/08/21 05:23 79 03/08/21 01:30 36.2 C L 76 20 122/66 97 03/08/21 01:14 36.2 C L 76 20 122/66 97 03/08/21 00:25 74 20 140/68 98 03/08/21 00:22 73 22 140/68 98 Laboratory Results 03/08/21 03/08/21 03/08/21 Range/Units 23:00 23:00 20:13 WBC (4.8-10.8) K/uL RBC (4.2-5.4) M/uL Hgb (12.0-16.0) g/dL Hct (37-47) % MCV (80-100) fL MCH (25-34) pg MCHC (32-36) g/dL RDW Std Deviation (36.4-46.3) fL RDW Coeff of Man (11.5-14.5) % Plt Count (130-400) K/uL MPV (7.4-10.4) fL Immature Gran % (Auto) % Neut % (Auto) % Lymph % (Auto) % [place] % (Auto) % Eos % (Auto) % Baso % (Auto) % Neut # (Auto) (1.4-6.5) K/uL Lymph # (Auto) (1.2-3.4) K/uL [place] # (Auto) (0.11-0.59) K/uL Eos # (Auto) (0-0.5) K/uL Baso # (Auto) (0-0.2) K/uL Immature Gran # (Auto) (0.00-0.02) K/uL PT (9.0-12.0) Seconds INR (0.9-1.1) Sodium 138 (136-145) mmol/L Potassium 2.9 L D (3.5-5.1) mmol/L Chloride 111 H (98-107) mmol/L Carbon Dioxide 19 L (21-32) mmol/L Anion Gap 8.0 (3-11) BUN 37 H (7-18) mg/dl Creatinine 1.09 (0.6-1.2) mg/dl Est Cr Clr Drug Dosing 50.2 ml/min Est GFR ( Amer) 62.6 ml/min Est GFR (Non-Af Amer) 54.0 ml/min BUN/Creatinine Ratio 34.1 H (10-20) Glucose 128 H (70-99) mg/dl Calcium 8.4 L (8.5-10.1) mg/dl Magnesium (1.8-2.4) mg/dl Total Bilirubin (0.2-1) mg/dl Direct Bilirubin (0-0.2) mg/dl AST (15-37) U/L ALT (12-78) U/L Alkaline Phosphatase (45-117) U/L Total Protein (6.4-8.2) gm/dl Albumin (3.4-5.0) gm/dl Globulin (2.5-4.0) gm/dl Albumin/Globulin Ratio (0.9-2) Lipase (73-393) U/L Urine WBC (Auto) (0-5) /hpf Urine RBC (Auto) (0-4) /hpf U Hyaline Cast (Auto) (0-5) /lpf U Epithel Cells (Auto) (0-5) /lpf Urine Bacteria (Auto) (Negative) Calcium Oxalate Crystal (None Prsent) Stl C. diff Tox B Gene Negative Cdiff Gene (Neg) Stool Comments Pending Acetaminophen (10-30) ug/ml Hepatitis A IgM Ab Hep Bs Antigen (Neg) Hep B Core IgM Ab Hepatitis C Antibody (Neg) 03/08/21 03/08/21 03/08/21 Range/Units 18:26 12:26 12:26 WBC (4.8-10.8) K/uL RBC (4.2-5.4) M/uL Hgb (12.0-16.0) g/dL Hct (37-47) % MCV (80-100) fL MCH (25-34) pg MCHC (32-36) g/dL RDW Std Deviation (36.4-46.3) fL RDW Coeff of Man (11.5-14.5) % Plt Count (130-400) K/uL MPV (7.4-10.4) fL Immature Gran % (Auto) % Neut % (Auto) % Lymph % (Auto) % [place] % (Auto) % Eos % (Auto) % Baso % (Auto) % Neut # (Auto) (1.4-6.5) K/uL Lymph # (Auto) (1.2-3.4) K/uL [place] # (Auto) (0.11-0.59) K/uL Eos # (Auto) (0-0.5) K/uL Baso # (Auto) (0-0.2) K/uL Immature Gran # (Auto) (0.00-0.02) K/uL PT 12.2 H (9.0-12.0) Seconds INR 1.2 H (0.9-1.1) Sodium (136-145) mmol/L Potassium (3.5-5.1) mmol/L Chloride (98-107) mmol/L Carbon Dioxide (21-32) mmol/L Anion Gap (3-11) BUN (7-18) mg/dl Creatinine (0.6-1.2) mg/dl Est Cr Clr Drug Dosing ml/min Est GFR ( Amer) ml/min Est GFR (Non-Af Amer) ml/min BUN/Creatinine Ratio (10-20) Glucose (70-99) mg/dl Calcium (8.5-10.1) mg/dl Magnesium 2.2 (1.8-2.4) mg/dl Total Bilirubin 1.1 H (0.2-1) mg/dl Direct Bilirubin 0.5 H (0-0.2) mg/dl AST 4728 H (15-37) U/L ALT 4489 H (12-78) U/L Alkaline Phosphatase 110 (45-117) U/L Total Protein 6.9 (6.4-8.2) gm/dl Albumin 3.3 L (3.4-5.0) gm/dl Globulin (2.5-4.0) gm/dl Albumin/Globulin Ratio (0.9-2) Lipase 1646 H (73-393) U/L Urine WBC (Auto) (0-5) /hpf Urine RBC (Auto) (0-4) /hpf U Hyaline Cast (Auto) (0-5) /lpf U Epithel Cells (Auto) (0-5) /lpf Urine Bacteria (Auto) (Negative) Calcium Oxalate Crystal (None Prsent) Stl C. diff Tox B Gene (Neg) Stool Comments Acetaminophen 4 L (10-30) ug/ml Hepatitis A IgM Ab Hep Bs Antigen (Neg) Hep B Core IgM Ab Hepatitis C Antibody (Neg) 03/08/21 03/08/21 03/08/21 Range/Units 05:50 05:50 05:45 WBC (4.8-10.8) K/uL RBC (4.2-5.4) M/uL Hgb (12.0-16.0) g/dL Hct (37-47) % MCV (80-100) fL MCH (25-34) pg MCHC (32-36) g/dL RDW Std Deviation (36.4-46.3) fL RDW Coeff of Man (11.5-14.5) % Plt Count (130-400) K/uL MPV (7.4-10.4) fL Immature Gran % (Auto) % Neut % (Auto) % Lymph % (Auto) % [place] % (Auto) % Eos % (Auto) % Baso % (Auto) % Neut # (Auto) (1.4-6.5) K/uL Lymph # (Auto) (1.2-3.4) K/uL [place] # (Auto) (0.11-0.59) K/uL Eos # (Auto) (0-0.5) K/uL Baso # (Auto) (0-0.2) K/uL Immature Gran # (Auto) (0.00-0.02) K/uL PT (9.0-12.0) Seconds INR (0.9-1.1) Sodium 136 (136-145) mmol/L Potassium 3.8 D (3.5-5.1) mmol/L Chloride 108 H (98-107) mmol/L Carbon Dioxide 17 L (21-32) mmol/L Anion Gap 11.0 (3-11) BUN 59 H (7-18) mg/dl Creatinine 3.04 H D (0.6-1.2) mg/dl Est Cr Clr Drug Dosing 18.0 ml/min Est GFR ( Amer) 18.1 ml/min Est GFR (Non-Af Amer) 15.6 ml/min BUN/Creatinine Ratio 19.4 (10-20) Glucose 83 (70-99) mg/dl Calcium 8.4 L (8.5-10.1) mg/dl Magnesium 1.4 L (1.8-2.4) mg/dl Total Bilirubin 0.8 (0.2-1) mg/dl Direct Bilirubin (0-0.2) mg/dl AST 2273 H (15-37) U/L ALT 2329 H (12-78) U/L Alkaline Phosphatase 92 (45-117) U/L Total Protein 6.6 (6.4-8.2) gm/dl Albumin 3.1 L (3.4-5.0) gm/dl Globulin 3.5 (2.5-4.0) gm/dl Albumin/Globulin Ratio 0.9 (0.9-2) Lipase 881 H (73-393) U/L Urine WBC (Auto) (0-5) /hpf Urine RBC (Auto) (0-4) /hpf U Hyaline Cast (Auto) (0-5) /lpf U Epithel Cells (Auto) (0-5) /lpf Urine Bacteria (Auto) (Negative) Calcium Oxalate Crystal (None Prsent) Stl C. diff Tox B Gene (Neg) Stool Comments Acetaminophen (10-30) ug/ml Hepatitis A IgM Ab Pending Hep Bs Antigen Neg (Neg) Hep B Core IgM Ab Pending Hepatitis C Antibody Neg (Neg) 03/08/21 03/08/21 Range/Units 05:45 00:13 WBC 13.58 H (4.8-10.8) K/uL RBC 3.59 L (4.2-5.4) M/uL Hgb 12.3 (12.0-16.0) g/dL Hct 34.5 L (37-47) % MCV 96.1 (80-100) fL MCH 34.3 H (25-34) pg MCHC 35.7 (32-36) g/dL RDW Std Deviation 48.5 H (36.4-46.3) fL RDW Coeff of Man 13.7 (11.5-14.5) % Plt Count 393 (130-400) K/uL MPV 9.4 (7.4-10.4) fL Immature Gran % (Auto) 1.3 % Neut % (Auto) 68.7 % Lymph % (Auto) 19.9 % [place] % (Auto) 9.1 % Eos % (Auto) 0.9 % Baso % (Auto) 0.1 % Neut # (Auto) 9.33 H (1.4-6.5) K/uL Lymph # (Auto) 2.70 (1.2-3.4) K/uL [place] # (Auto) 1.24 H (0.11-0.59) K/uL Eos # (Auto) 0.12 (0-0.5) K/uL Baso # (Auto) 0.02 (0-0.2) K/uL Immature Gran # (Auto) 0.17 H (0.00-0.02) K/uL PT (9.0-12.0) Seconds INR (0.9-1.1) Sodium (136-145) mmol/L Potassium (3.5-5.1) mmol/L Chloride (98-107) mmol/L Carbon Dioxide (21-32) mmol/L Anion Gap (3-11) BUN (7-18) mg/dl Creatinine (0.6-1.2) mg/dl Est Cr Clr Drug Dosing ml/min Est GFR ( Amer) ml/min Est GFR (Non-Af Amer) ml/min BUN/Creatinine Ratio (10-20) Glucose (70-99) mg/dl Calcium (8.5-10.1) mg/dl Magnesium (1.8-2.4) mg/dl Total Bilirubin (0.2-1) mg/dl Direct Bilirubin (0-0.2) mg/dl AST (15-37) U/L ALT (12-78) U/L Alkaline Phosphatase (45-117) U/L Total Protein (6.4-8.2) gm/dl Albumin (3.4-5.0) gm/dl Globulin (2.5-4.0) gm/dl Albumin/Globulin Ratio (0.9-2) Lipase (73-393) U/L Urine WBC (Auto) 1-5 (0-5) /hpf Urine RBC (Auto) 0-4 (0-4) /hpf U Hyaline Cast (Auto) >30 H (0-5) /lpf U Epithel Cells (Auto) >30 H (0-5) /lpf Urine Bacteria (Auto) Negative (Negative) Calcium Oxalate Crystal Present A (None Prsent) Stl C. diff Tox B Gene (Neg) Stool Comments Acetaminophen (10-30) ug/ml Hepatitis A IgM Ab Hep Bs Antigen (Neg) Hep B Core IgM Ab Hepatitis C Antibody (Neg) Diagnostic Findings Abdomen/Pelvis CT 03/07/21 22:[address] WITHOUT CONTRAST CT DOSE: 295.41 mGy.cm HISTORY: transaminitis, elevated lipase , acute renal failure TECHNIQUE: Multiaxial CT images of the abdomen and pelvis were performed without contrast. A dose lowering technique was utilized adhering to the principles of ALARA. COMPARISON STUDY: None. FINDINGS: There is mild superior endplate compression deformity at L1. This is likely chronic. The lung bases are clear. No pneumoperitoneum. No pneumatosis. There are 2 hypodensities within the liver with the largest in the left hepatic lobe measuring 1.2 cm. These are incompletely characterized on this noncontrast study but statistically represent benign lesions. The unenhanced spleen, adrenal glands, pancreas, and kidneys are within normal limits. No hydronephrosis. Mild calcified plaque within the normal caliber abdominal aorta. No retroperitoneal lymphadenopathy. The bladder, uterus, bilateral adnexa are within normal limits. There are suboptimal evaluation for bowel pathology due to the lack of intravenous and oral contrast. However, there is no definite bowel wall thickening or obstruction. Normal appendix. A few colonic diverticula. No evidence for acute diverticulitis. Questionable minimal fat stranding adjacent to the cecum is likely secondary to the normal mesenteric vessels. IMPRESSION: 1. No renal or ureteral stones. No hydronephrosis. 2. No definite bowel wall thickening or obstruction. 3. Normal appendix. 4. Additional findings as described above. ACT 112: Negative or not required by law. Electronically signed by: Chavez Silva M.D. 03/08/2021 7:38 AM Hepatobiliary Scan Nuclear Medicine 03/08/21 00:00 NM hepatobiliary EF CLINICAL HISTORY: transaminitis, pancreatitis, GB sludge COMPARISON STUDY: CT scan dated 03/07/2021 FINDINGS: The patient was injected with 5.2 mCi of technetium 99 M Choletec. Sequential anterior imaging was performed. Hepatic excretion appeared unremarkable. There is normal passage of activity into small bowel. The gallbladder was first visualized on the 10 minute image. The patient was injected with 0.2 mcg/kg intravenous Kinevac. The gallbladder ejection fraction was normal measuring 62%. IMPRESSION: 1. Normal study. No evidence of cystic duct obstruction. Normal gallbladder ejection fraction of 62% ACT 112: Negative or not required by law. Electronically signed by: Anthony Ornelas M.D. 03/08/2021 4:08 PM PG Care Time/CCT Total # of Minutes Spent Total Time Spent with Patient: Total time spent is greater than 50% in coordination of care (as documented) at patient's floor/unit and/or counseling patient: Coding Level of Care Code 59351 Subseq Hosp Care Lvl 3 Diagnoses Gallbladder sludge K82.8 Transaminitis R74.01 Benign essential hypertension I10 Dyslipidemia E78.5 Depression F32.9 COPD (chronic obstructive pulmonary disease) J44.9 Acute renal failure N17.9 Acute renal failure type: unspecified Acute hypokalemia E87.6 Elevated lipase R74.8 Hypomagnesemia E83.42 DVT prophylaxis Z29.9 Diarrhea R19.7 Diarrhea type: unspecified type Abnormal CT of liver R93.2 (1) Acute renal failure Acute renal failure type: unspecified Qualified Code(s): N17.9 - Acute kidney failure, unspecified (2) Diarrhea Diarrhea type: unspecified type Qualified Code(s): R19.7 - Diarrhea, unspecified
--- NOTE | 2021-03-08 12:18 | Gastrointestinal Consultation ---
Date of Consultation March 08, 2021 Assessment & Plan (1) Gallbladder sludge: -Proceed with HIDA as ordered by primary team -Given leukocytosis & acute symptoms, agree with continuing Zosyn as ordered per primary team (2) Transaminitis: Given degree of transaminitis (LFTs in the 2000s), recent diarrhea, and hypotension x 1 week, suspect ischemic hepatitis or shock liver. This may or may not be compounded with a gallbladder problem, but normal bilirubin is reassuring. Infectious hepatitis studies are pending. Would continue to trend LFTs. Given reports of excess Tylenol use, would check an acetaminophen level and obtain an INR. CT does not show any biliary ductal abnormalities and bilirubin is normal, however patient can't proceed with MRCP at this time due to kidney function. If no improvement in LFTs, consider obtaining a dedicated US liver for better assessment along with autoimmune liver work-up with EDWARD, AMA, ASMA. If diarrhea returns, obtain stool studies as well including C diff, stool culture, gram stain. (3) Abnormal CT of liver: -Plan for dedicated liver CT or MRI as outpatient once kidney function normalizes Thank you for allowing us to participate in the care of this patient. If you should have any further questions or concerns, do not hesitate to contact us at extension [phone] or [phone]. Supervising Physician Co-Signing Physician Notes Agree with RUBIO Jones as above Abd: Soft, NT, ND, +BS HIDA negative Discussed case with family at bedside, most likely ischemic hepatitis Continue supportive care Advance diet as tolerated OK to use Tylenol up to 2g per day History of Present Illness Reason for Consultation: Elevated LFTs Attending Physician: Alicia Tubbs MD History of Present Illness Patient is a 61 yo female with a PMH of macrocytic anemia, HLD, HTN, anxiety, and arthritis who presented with 1 week fo RUQ pain with radiation to the back. She notes that this pain has been ongoing intermittently over the past 5 years, but now seems to be more persistent. She is also struggling with frequent diarrhea post-prandially. She notes 10+ episodes of yellow stool after eating a meal. She denies any particular food trigger that she has seen as a pattern. She had a CT scan of the abdomen/pelvis that indicated gallbladder sludge. She had liver hypodensities noted as well, however due to her current kidney function she is unable to have more detailed imaging obtained with a liver protocol. Her WBC count is elevated to 13, 580. Lipase is 881. BUN/Cr 59/3.04. ALT 2329 and AST 2273. Her bilirubin and alk phos is normal. No ductal abnormalities noted on CT scan. She has been scheduled by the primary team for a HIDA scan today. She denies pertinent family history. She does note she uses Tylenol in excess (admits to taking more than the daily recommended amount). Patient was reportedly hypotensive and with diarrhea for a week prior to presenting to the hospital. Allergies Allergy/AdvReac Type Severity Reaction Status Date / Time aspirin AdvReac Intermediate HIGHER Verified 03/07/21 22:06 DOSES--HIVES, LOW DOSE--OK Home Medications Medication Instructions Recorded Confirmed Type aspirin 81 mg tablet,delayed 81 mg PO DAILY 03/02/19 03/07/21 History release (Adult Low Dose Aspirin) acetaminophen 500 mg tablet 500 - 1,000 mg PO DIRECTED PRN 04/14/19 03/07/21 History tab cholecalciferol (vitamin D3) 50 2,000 units PO DAILY cap 05/09/19 03/07/21 History mcg (2,000 unit) capsule cyanocobalamin (vitamin B-12) 500 500 mcg PO DAILY tab 05/09/19 03/07/21 History mcg tablet amlodipine 10 mg tablet 10 mg PO HS #90 tab 11/14/20 03/07/21 Rx telmisartan 80 mg tablet 80 mg PO DAILY #90 tab 11/14/20 03/07/21 Rx hydrochlorothiazide 25 mg tablet 25 mg PO DAILY #90 tab 11/23/20 03/07/21 Rx bupropion HCl 150 mg 24 hr tablet, 150 mg PO QAM #7 tab 12/05/20 03/07/21 Rx extended release escitalopram oxalate 10 mg tablet 10 mg PO DAILY #30 tab 12/05/20 03/07/21 Rx albuterol sulfate 90 mcg/actuation 2 puff INHALATION Q4H PRN #8.5 g 01/26/21 03/07/21 Rx aerosol inhaler metoprolol succinate 50 mg 50 mg PO DAILY #90 tab 03/01/21 03/07/21 Rx tablet,extended release 24 hr trazodone 50 mg tablet 50 mg PO HS #90 tab 03/01/21 03/07/21 Rx atorvastatin 20 mg tablet 20 mg PO HS 03/07/21 03/07/21 History Patient History Medical History (Updated 03/08/21 @ 12:21 by Nicoltete Rose PA-C) Abnormal glucose Abnormal mammography Abnormal TSH Allergic rhinitis Anxiety Arthritis Benign essential hypertension Dyslipidemia History of abnormal mammogram History of muscle pain Intra-articular fracture of distal end of radius with volar angulation Left wrist fracture Macrocytic anemia Surgical History H/O section History of tonsillectomy 1975 S/P dilation and curettage S/P tonsillectomy Family History Mother Hypertension Pancreatic cancer Father Hypertension Other Patient's mother is Denies family history of Colon cancer Ovarian cancer Prostate cancer Myocardial infarction Breast cancer Social History Smoking Status: Current every day smoker Tobacco Type: Cigarettes Age Started Using Tobacco: 15; packs per day: 1; Cigarettes Per Day: Almost 20; Second Hand Exposure: No; Hx Alcohol Use: Yes Alcohol type: beer, wine and hard liquor Alcohol Intake Frequency: 2-3 x/Week Alcohol Intake Frequency Comment: wine Hx Substance Use: No Preferred Language: [place] Communication Ability: Effective Visual Impairment: Limited Hearing Ability: Normal Shell Maker Lockstitch Required: No Beliefs That Will Affect Care: None marital status: Current Living Situation: Spouse current occupational status: employed 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 How many Children do You have: 2 Feels Safe at Home: Yes Childhood Exposure to Second-Hand Smoke: No caffeine: Yes during the past year weight has: remained stable Dental Care, Regularly: Yes Physical Activity Frequency: Daily Seatbelt Use: always Sunscreen Use: Yes Assistive Devices: None Review of Systems Constitutional: no fever and no chills Respiratory: no cough and no dyspnea Cardiovascular: no chest pain Gastrointestinal: + abdominal pain (RUQ) and + diarrhea/loose stools (resolved at present); no nausea and no vomiting Physical Exam Constitutional: WD/WN, vitals as above Respiratory: normal respiratory effort, lungs clear to auscultation Cardiovascular: RRR, no murmur, no edema Gastrointestinal (Abdomen): Inspection/Auscultation: abdomen normal to inspection Percussion/Palpation: + abdomen tender and abdomen soft Musculoskeletal: Head/Neck/Chest: normocephalic Psychiatric: A+Ox3, euthymic affect Results & Data ([facility]) Vital Signs (Past 12 Hours) Vital Signs Temp Pulse Pulse Resp BP BP Pulse Ox 03/08/21 11:03 36.7 C 68 18 96/62 L 97 03/08/21 07:57 71 03/08/21 07:19 36.8 C 78 20 102/63 97 03/08/21 05:23 79 03/08/21 01:30 36.2 C L 76 20 122/66 97 03/08/21 01:14 36.2 C L 76 20 122/66 97 03/08/21 00:25 74 20 140/68 98 03/08/21 00:22 73 22 140/68 98 Results BMP Results: Sodium 136 mmol/L (136-145) 03/08/21 Potassium 3.8 mmol/L (3.5-5.1) 03/08/21 Chloride 108 mmol/L (98-107) H 03/08/21 BUN 59 mg/dl (7-18) H 03/08/21 Creatinine 3.04 mg/dl (0.6-1.2) H 03/08/21 Glucose 83 mg/dl (70-99) 03/08/21 Results CBC w Diff: RBC 3.59 M/uL (4.2-5.4) L 03/08/21 WBC 13.58 K/uL (4.8-10.8) H 03/08/21 Hgb 12.3 g/dL (12.0-16.0) 03/08/21 Hct 34.5 % (37-47) L 03/08/21 MCV 96.1 fL (80-100) 03/08/21 MCH 34.3 pg (25-34) H 03/08/21 MCHC 35.7 g/dL (32-36) 03/08/21 RDW Standard Deviation 48.5 fL (36.4-46.3) H 03/08/21 RDW Coefficient of Variation 13.7 % (11.5-14.5) 03/08/21 Plt Count 393 K/uL (130-400) 03/08/21 MPV 9.4 fL (7.4-10.4) 03/08/21 Neutrophils (%) (Auto) 68.7 % 03/08/21 Lymphocytes (%) (Auto) 19.9 % 03/08/21 Monocytes # (Auto) 1.24 K/uL (0.11-0.59) H 03/08/21 Eosinophils # (Auto) 0.12 K/uL (0-0.5) 03/08/21 Immature Granulocyte % (Auto) 1.3 % 03/08/21 Neutrophils # (Auto) 9.33 K/uL (1.4-6.5) H 03/08/21 Lymphocytes # (Auto) 2.70 K/uL (1.2-3.4) 03/08/21 Monocytes # (Auto) 1.24 K/uL (0.11-0.59) H 03/08/21 Eosinophils # (Auto) 0.12 K/uL (0-0.5) 03/08/21 Basophils # (Auto) 0.02 K/uL (0-0.2) 03/08/21 Immature Granulocyte # (Auto) 0.17 K/uL (0.00-0.02) H 03/08/21 PG Care Time/CCT Total # of Minutes Spent Total Time Spent with Patient: Total time spent is greater than 50% in coordination of care (as documented) at patient's floor/unit and/or counseling patient: Coding Level of Care Code 20958 Inpt Consult Level 4 Diagnoses Gallbladder sludge K82.[address] of liver R93.2
[2021-03-08 12:46] LABS: INR 1.2 (0.9-1.1); Prothrombin Time 12.2 Seconds (9.0-12.0)
[2021-03-08] MEDS ORDERED: SODIUM CHLORIDE 0.9% IV ONE (14:00)
[2021-03-08] MEDS ORDERED: SINCALIDE IV ONE (14:00)
--- NOTE | 2021-03-08 16:10 | Nuclear Medicine Report ---
NM hepatobiliary EF CLINICAL HISTORY: transaminitis, pancreatitis, GB sludge COMPARISON STUDY: CT scan dated 03/07/2021 FINDINGS: The patient was injected with 5.2 mCi of technetium 99 M Choletec. Sequential anterior imaging was performed. Hepatic excretion appeared unremarkable. There is normal passage of activity into small bowel. The gallbladder was first visualized on the 10 minute image. The patient was injected with 0.2 mcg/kg intravenous Kinevac. The gallbladder ejection fraction was n ormal measuring 62%. IMPRESSION: 1. Normal study. No evidence of cystic duct obstruction. Normal gallbladder ejection fraction of 62% ACT 112: Negative or not required by law. Electronically signed by: Anthony Ornelas M.D. 03/08/2021 4:08 PM
--- NOTE | 2021-03-08 17:05 | Electrocardiogram Report ---
Test Reason : Blood Pressure : / mmHG Vent. Rate : 078 BPM Atrial Rate : 078 BPM P-R Int : 174 ms QRS Dur : 092 ms QT Int : 518 ms P-R-T Axes : 059 054 034 degrees QTc Int : 590 ms Poor data quality, interpretation may be adversely affected Normal sinus rhythm Nonspecific T wave abnormality Abnormal ECG No previous ECGs available Confirmed by Tl Walker ([id number]) on 03/08/2021 5:05:26 PM Referred By: REFERRED SELF Confirmed By:Ashok Walker
[2021-03-08] MEDS: oxyCODONE HCL IR 5 MG TAB (IMMEDIATE RELEASE) PO PRN (18:06)
[2021-03-08] MEDS ORDERED: ACETAMINOPHEN 325 MG TAB PO PRN (19:12)
[2021-03-08 19:33] LABS: Albumin Level 3.3 gm/dl (3.4-5.0); Bilirubin Direct 0.5 mg/dl (0-0.2); Bilirubin,Total 1.1 mg/dl (0.2-1); Magnesium 2.2 mg/dl (1.8-2.4); Total Protein 6.9 gm/dl (6.4-8.2)
[2021-03-08 20:56] LABS: BUN Creatinine Ratio 34.1 (10-20); Calcium 8.4 mg/dl (8.5-10.1); Creatinine Clr Calc Pharmacy 50.2 ml/min; Est GFR (African American) 62.6 ml/min; Potassium 2.9 mmol/L (3.5-5.1)
[2021-03-08] MEDS ORDERED: ATORVASTATIN 20 MG TAB PO SCH (21:00)
[2021-03-08] MEDS ORDERED: amLODIPine BESYLATE 5 MG TAB PO SCH (21:00)
[2021-03-08] MEDS ORDERED: traZODone HCL 50 MG TAB PO SCH (21:00)
[2021-03-09] MEDS: POTASSIUM CHLORIDE / WTR 10 MEQ/100 ML PLCT IV SCH ×4 (01:47→05:06)
[2021-03-09] MEDS: LACTATED RINGER'S 1,000 ML IV SCH ×2 (01:47→10:29)
[2021-03-09] MEDS: FAMOTIDINE 20 MG in SYRINGE 3 ML IV SCH (05:58)
[2021-03-09 07:21] LABS: Basophils # (auto) 0.03 K/uL (0-0.2); Basophils % (auto) 0.3 %; Eosinophils % (auto) 2.1 %; Hematocrit (blood only) 32.8 % (37-47); Hemoglobin 11.8 g/dL (12.0-16.0); Immature Granulocytes # (auto) 0.18 K/uL (0.00-0.02); Immature Granulocytes % (auto) 1.9 %; Lymphocytes # (auto) 2.04 K/uL (1.2-3.4); Lymphocytes % (auto) 21.5 %; Mean Corpuscular Hemoglobin 35.2 pg (25-34); Mean Corpuscular Volume 97.9 fL (80-100); Mean Platelet Volume 9.4 fL (7.4-10.4); Monocytes # (auto) 1.16 K/uL (0.11-0.59); Monocytes % (auto) 12.2 %; Platelet Count 358 K/uL (130-400); RDW Coefficient of Variation 13.8 % (11.5-14.5); RDW Standard Deviation 49.2 fL (36.4-46.3); Red Blood Count 3.35 M/uL (4.2-5.4); White Blood Count 9.51 K/uL (4.8-10.8)
[2021-03-09 07:28] LABS: INR 1.2 (0.9-1.1)
[2021-03-09 07:36] LABS: Hepatitis A Antibody IgM NON-REACTIVE (NON-REACTIVE); Hepatitis B Core Antibody IgM NON-REACTIVE (NON-REACTIVE)
[2021-03-09 07:54] LABS: BUN Creatinine Ratio 34.5 (10-20); Calcium 8.9 mg/dl (8.5-10.1); Creatinine Clr Calc Pharmacy 84.3 ml/min; Est GFR (African American) 109.5 ml/min; Est GFR (Non-African American) 94.5 ml/min; Magnesium 1.9 mg/dl (1.8-2.4); Potassium 3.6 mmol/L (3.5-5.1)
[2021-03-09 08:12] LABS: Albumin Globulin Ratio 0.9 (0.9-2); Bilirubin,Total 1.1 mg/dl (0.2-1); Globulin 3.2 gm/dl (2.5-4.0); Total Protein 6.2 gm/dl (6.4-8.2)
[2021-03-09] MEDS: NICOTINE 14 MG/24 HR PATCH TD SCH (08:21)
[2021-03-09] MEDS: ASPIRIN 81 MG ECTAB PO SCH (08:22)
[2021-03-09] MEDS: buPROPion XL 150 MG TABCR PO SCH (08:22)
[2021-03-09] MEDS: CYANOCOBALAMIN 500 MCG TABLET (VITAMIN B-12) PO SCH (08:22)
[2021-03-09] MEDS: CHOLECALCIFEROL 1,000 UNITS 25 MCG TAB PO SCH (08:23)
[2021-03-09] MEDS: HEPARIN SOD 5,000 UNIT/0.5 ML VIAL SQ SCH ×2 (08:23→20:51)
--- NOTE | 2021-03-09 09:39 | Gastroenterology Progress Note ---
Date of Service March 09, 2021 Assessment & Plan (1) Transaminitis: Plan: Concern for ischemic/shock liver vs infectious hepatitis vs autoimmune vs other. Tylenol level and infectious hepatitis serologies negative. CT & biliary imaging unremarkable thus far. -Continue to trend LFTs, though these may take 6 weeks to normalize -Can check the remainder of autoimmune serologies--will update EDWARD (last in 2019), check AMA & ASMA -Plan to follow-up in our clinic as an outpatient; we will continue to trend LFTs and obtain a CT with liver protocol to further assess liver lesion previously noted. Admission and Anticipated Discharge Date Admission Date: March 07, 2021 Supervising Physician Co-Signing Physician Notes Agree with RUBIO Jones as above Abd: Soft, NT, ND, +BS She is feeling much better today Continue current therapy and supportive care She is tolerating advanced diet without difficulty She will need to followup in our office and have liver panel repeated periodically over the next 6 weeks, as we would expect her liver panel to return to normal in that time period. CT scan with Liver protocol as outpatient Subjective Patient is a 61 yo female with suspected acute liver injury from possible ischemic/shock liver. The patient's LFTs peaked yesterday at an AST of 4728 and ALT 4489. These have now decreased overnight to an AST of 2886 and ALT of 3874. INR 1.1. Infectious Hep A, B, & C studies were negative. Patient had a negative EDWARD in 2019. Tylenol level was within normal limits at the time of my assessment on 03/08/21. HIDA scan was unremarkable. MRCP unable to be obtained due to kidney function, though this has normalized today. Patient reports resolution of her abdominal pain. She notes experiencing a loose stool after a Potassium infusion, but feels remarkably better. C diff study was negative & stool cultures at pending at present. Review of Systems Constitutional: no fever and no chills Respiratory: no cough and no dyspnea Cardiovascular: no chest pain Gastrointestinal: no abdominal pain, no nausea, no vomiting and no diarrhea/loose stools Physical Exam Constitutional: well developed Respiratory: normal respiratory effort Cardiovascular: Extremities: no edema Gastrointestinal (Abdomen): Inspection/Auscultation: abdomen normal to inspe ction Percussion/Palpation: abdomen soft; abdomen nontender Results & Data Results & Data ([facility]) Vital Signs (Past 12 Hours) Vital Signs Temp Pulse Pulse Resp BP BP Pulse Ox 03/09/21 07:52 68 03/09/21 07:45 37.2 C 76 18 138/73 95 03/09/21 04:37 36.8 C 98 H 20 124/66 94 03/09/21 02:44 72 03/09/21 00:20 37.2 C 70 20 109/62 96 PG Care Time/CCT Total # of Minutes Spent Total Time Spent with Patient: Total time spent is greater than 50% in coordination of care (as documented) at patient's floor/unit and/or counseling patient: Coding Level of Care Code 95125 Subseq Hosp Care Lvl 3 Diagnoses Transaminitis R74.01
[2021-03-09] MEDS: PIPERACILLIN/TAZOBACTAM 3.375 GM in DEXTROSE 5% 100 ML IV SCH (10:29)
--- NOTE | 2021-03-09 14:37 | Hospitalist Progress Note ---
Date of Service March 09, 2021 Assessment & Plan (1) Transaminitis: Plan: Presented to the ER with 1 week of severe diarrhea, lightheadedness, hypotension She was found to have severely elevated AST and ALT as well as acute kidney injury Hepatitis panel is negative, nonobstructive picture of LFTs INR slightly elevated at 1.2 CT abdomen/pelvis only with gallbladder sludge noted on overnight radiology read but otherwise normal except for 1.2 cm lesions in the liver that are indeterminate The patient has no abdominal pain at all Most likely secondary to acute liver injury from hypotension secondary to hypovolemia from severe diarrhea Tylenol level is 4 Significantly improved. AST and ALT peaked in 4000s and now both trending back down. TBili remains normal Lipase also elevated secondary to poor perfusion -Follow LFTs -Supportive care and maintain blood pressure-BPs now high-can dc IVFs -Held all home antihypertensives, but now elevated BP--> restart Toprol XL 50mg daily -INR 1.2, platelets normal, creatinine back to normal -HIDA scan performed which is negative -dc Zosyn being given empirically- leukocytosis likely due to stress response but no infection noted and no colitis on CT -Appreciate GI consultation -continue holding atorvastatin -Okay to give Tylenol up to 2 g/day as needed for pain (2) Acute renal failure: Plan: Acute kidney failure with ATN-now resolved Secondary to hypovolemia from severe diarrhea Creatinine 4.7 on arrival and now normal with IV fluid hydration discontinue IV fluids Follow BMP Renally dose medications as appropriate -continue to hold home telmisartan and HCTZ (3) Hypomagnesemia: Plan: Severe at 0.9 on admission, secondary to significant diarrhea Improved to 1.89 today but still with some diarrhea--> give Mag sulfate 1 gram IV x 1 today Follow magnesium level in the morning (4) Diarrhea: Plan: As noted above, with 6 to 7 days of severe diarrhea No recent travel, camping, eating out at restaurants, sick contacts. Covid-19 is negative Could be infectious most likely-bacterial, viral, parasite -Check stool culture-pending C. difficile negative - ova and parasites pending Seems to be resolving Supportive care, electrolyte replacement (5) Acute hypokalemia: Plan: Secondary to GI losses Replace with po KCl today and follow BMP Replacing magnesium (6) Elevated lipase: Plan: Lipase elevated at 1700 No pancreatitis seen on CT of the abdomen/pelvis Most likely elevation secondary to hypoperfusion from hypotension Has no abdominal pain tolerating low fiber diet (7) Gallbladder sludge: Plan: HIDA scan negative As above (8) Benign essential hypertension: Plan: With hypotension in the 70s systolic on arrival, held all home meds now as above, BPs rising restart home Toprol XL continue ot hold ARB and HCTZ (9) Dyslipidemia: Plan: Holding home statin for transaminitis (10) Depression: Plan: Continue home meds (11) COPD (chronic obstructive pulmonary disease): Plan: No acute issues Smoking cessation counseling Nicotine patch as needed Inhalers as needed (12) Abnormal CT of liver: Plan: 1.2 cm lesions x [address], nonspeciifc GI plans to see as outpt and check liver CT/MRI as outpt (13) DVT prophylaxis: Plan: Heparin SQ Disposition-continued stay, but improving, may dc to home tomorrow if continues to improve and lytes ok in the AM Admission and Anticipated Discharge Date Admission Date: March 07, 2021 Anticipated date of discharge: 03/10/21 Subjective Pt feeling much better. Still having small amounts of loose stool with each time she urinates. Denies CP, SOB, lightheadedness, no N/V, no abd pain. No more cramping in toes and feet like prior to admission. Tele with NSR rates 60-70s Review of Systems Review of Systems: All systems reviewed & are unremarkable except as noted in HPI & below Physical Exam Constitutional: WD/WN, vitals as above Eyes: + anicteric sclerae ENMT: external ear and nose normal, oropharynx normal Neck: trachea midline, no thyromegaly Respiratory: normal respiratory effort, lungs clear to auscultation Cardiovascular: RRR, no murmur, no edema Chest (Breasts): Chest: normal inspection of chest Gastrointestinal (Abdomen): normal bowel sounds, soft, nontender, no hepatosplenomegaly Musculoskeletal: Extremities: extremities normal to inspection; no cyanosis and no clubbing Skin: no rashes, warm and dry Neurologic: moves all extremities and awake; no focal motor deficits Psychiatric: A+Ox3, euthymic affect Lymphatic: no lymphedema Results & Data Results & Data ([facility]) Vital Signs (Past 12 Hours) Vital Signs Temp Pulse Pulse Resp BP BP Pulse Ox 03/09/21 11:09 36.6 C 79 18 151/78 H 95 03/09/21 07:52 68 03/09/21 07:45 37.2 C 76 18 138/73 95 03/09/21 04:37 36.8 C 98 H 20 124/66 94 03/09/21 02:44 72 Laboratory Results 03/09/21 03/09/21 03/09/21 Range/Units 10:49 06:31 06:31 WBC (4.8-10.8) K/uL RBC (4.2-5.4) M/uL Hgb (12.0-16.0) g/dL Hct (37-47) % MCV (80-100) fL MCH (25-34) pg MCHC (32-36) g/dL RDW Std Deviation (36.4-46.3) fL RDW Coeff of Man (11.5-14.5) % Plt Count (130-400) K/uL MPV (7.4-10.4) fL Immature Gran % (Auto) % Neut % (Auto) % Lymph % (Auto) % [place] % (Auto) % Eos % (Auto) % Baso % (Auto) % Neut # (Auto) (1.4-6.5) K/uL Lymph # (Auto) (1.2-3.4) K/uL [place] # (Auto) (0.11-0.59) K/uL Eos # (Auto) (0-0.5) K/uL Baso # (Auto) (0-0.2) K/uL Immature Gran # (Auto) (0.00-0.02) K/uL PT 12.0 (9.0-12.0) Seconds INR 1.2 H (0.9-1.1) Sodium 141 (136-145) mmol/L Potassium 3.6 D (3.5-5.1) mmol/L Chloride 111 H (98-107) mmol/L Carbon Dioxide 21 (21-32) mmol/L Anion Gap 8.0 (3-11) BUN 23 H (7-18) mg/dl Creatinine 0.65 D (0.6-1.2) mg/dl Est Cr Clr Drug Dosing 84.3 ml/min Est GFR ( Amer) 109.5 ml/min Est GFR (Non-Af Amer) 94.5 ml/min BUN/Creatinine Ratio 34.5 H (10-20) Glucose 78 (70-99) mg/dl Calcium 8.9 (8.5-10.1) mg/dl Magnesium 1.9 (1.8-2.4) mg/dl Total Bilirubin 1.1 H (0.2-1) mg/dl Direct Bilirubin (0-0.2) mg/dl AST 2886 H (15-37) U/L ALT 3874 H (12-78) U/L Alkaline Phosphatase 107 (45-117) U/L Total Protein 6.2 L (6.4-8.2) gm/dl Albumin 3.0 L (3.4-5.0) gm/dl Globulin 3.2 (2.5-4.0) gm/dl Albumin/Globulin Ratio 0.9 (0.9-2) Lipase 1733 H (73-393) U/L Stl C. diff Tox B Gene (Neg) Stool Comments EDWARD Screen Pending Anti-Mitochondrial Ab Pending Anti-Smooth Muscle Ab Pending Hepatitis A IgM Ab (NON-REACTIVE) Hep B Core IgM Ab (NON-REACTIVE) 03/09/21 03/08/21 03/08/21 Range/Units 06:31 23:00 23:00 WBC 9.51 (4.8-10.8) K/uL RBC 3.35 L (4.2-5.4) M/uL Hgb 11.8 L (12.0-16.0) g/dL Hct 32.8 L (37-47) % MCV 97.9 (80-100) fL MCH 35.2 H (25-34) pg MCHC 36.0 (32-36) g/dL RDW Std Deviation 49.2 H (36.4-46.3) fL RDW Coeff of Man 13.8 (11.5-14.5) % Plt Count 358 (130-400) K/uL MPV 9.4 (7.4-10.4) fL Immature Gran % (Auto) 1.9 % Neut % (Auto) 62.0 % Lymph % (Auto) 21.5 % [place] % (Auto) 12.2 % Eos % (Auto) 2.1 % Baso % (Auto) 0.3 % Neut # (Auto) 5.90 (1.4-6.5) K/uL Lymph # (Auto) 2.04 (1.2-3.4) K/uL [place] # (Auto) 1.16 H (0.11-0.59) K/uL Eos # (Auto) 0.20 (0-0.5) K/uL Baso # (Auto) 0.03 (0-0.2) K/uL Immature Gran # (Auto) 0.18 H (0.00-0.02) K/uL PT (9.0-12.0) Seconds INR (0.9-1.1) Sodium (136-145) mmol/L Potassium (3.5-5.1) mmol/L Chloride (98-107) mmol/L Carbon Dioxide (21-32) mmol/L Anion Gap (3-11) BUN (7-18) mg/dl Creatinine (0.6-1.2) mg/dl Est Cr Clr Drug Dosing ml/min Est GFR ( Amer) ml/min Est GFR (Non-Af Amer) ml/min BUN/Creatinine Ratio (10-20) Glucose (70-99) mg/dl Calcium (8.5-10.1) mg/dl Magnesium (1.8-2.4) mg/dl Total Bilirubin (0.2-1) mg/dl Direct Bilirubin (0-0.2) mg/dl AST (15-37) U/L ALT (12-78) U/L Alkaline Phosphatase (45-117) U/L Total Protein (6.4-8.2) gm/dl Albumin (3.4-5.0) gm/dl Globulin (2.5-4.0) gm/dl Albumin/Globulin Ratio (0.9-2) Lipase (73-393) U/L Stl C. diff Tox B Gene Negative Cdiff Gene (Neg) Stool Comments Pending EDWARD Screen Anti-Mitochondrial Ab Anti-Smooth Muscle Ab Hepatitis A IgM Ab (NON-REACTIVE) Hep B Core IgM Ab (NON-REACTIVE) 03/08/21 03/08/21 03/08/21 Range/Units 20:13 18:26 05:50 WBC (4.8-10.8) K/uL RBC (4.2-5.4) M/uL Hgb (12.0-16.0) g/dL Hct (37-47) % MCV (80-100) fL MCH (25-34) pg MCHC (32-36) g/dL RDW Std Deviation (36.4-46.3) fL RDW Coeff of Man (11.5-14.5) % Plt Count (130-400) K/uL MPV (7.4-10.4) fL Immature Gran % (Auto) % Neut % (Auto) % Lymph % (Auto) % [place] % (Auto) % Eos % (Auto) % Baso % (Auto) % Neut # (Auto) (1.4-6.5) K/uL Lymph # (Auto) (1.2-3.4) K/uL [place] # (Auto) (0.11-0.59) K/uL Eos # (Auto) (0-0.5) K/uL Baso # (Auto) (0-0.2) K/uL Immature Gran # (Auto) (0.00-0.02) K/uL PT (9.0-12.0) Seconds INR (0.9-1.1) Sodium 138 (136-145) mmol/L Potassium 2.9 L D (3.5-5.1) mmol/L Chloride 111 H (98-107) mmol/L Carbon Dioxide 19 L (21-32) mmol/L Anion Gap 8.0 (3-11) BUN 37 H (7-18) mg/dl Creatinine 1.09 (0.6-1.2) mg/dl Est Cr Clr Drug Dosing 50.2 ml/min Est GFR ( Amer) 62.6 ml/min Est GFR (Non-Af Amer) 54.0 ml/min BUN/Creatinine Ratio 34.1 H (10-20) Glucose 128 H (70-99) mg/dl Calcium 8.4 L (8.5-10.1) mg/dl Magnesium 2.2 (1.8-2.4) mg/dl Total Bilirubin 1.1 H (0.2-1) mg/dl Direct Bilirubin 0.5 H (0-0.2) mg/dl AST 4728 H (15-37) U/L ALT 4489 H (12-78) U/L Alkaline Phosphatase 110 (45-117) U/L Total Protein 6.9 (6.4-8.2) gm/dl Albumin 3.3 L (3.4-5.0) gm/dl Globulin (2.5-4.0) gm/dl Albumin/Globulin Ratio (0.9-2) Lipase 1646 H (73-393) U/L Stl C. diff Tox B Gene (Neg) Stool Comments EDWARD Screen Anti-Mitochondrial Ab Anti-Smooth Muscle Ab Hepatitis A IgM Ab NON-REACTIVE (NON-REACTIVE) Hep B Core IgM Ab NON-REACTIVE (NON-REACTIVE) PG Care Time/CCT Total # of Minutes Spent Total Time Spent with Patient: Total time spent is greater than 50% in coordination of care (as documented) at patient's floor/unit and/or counseling patient: Coding Level of Care Code 61743 Subseq Hosp Care Lvl 3 Diagnoses Transaminitis R74.01 Acute renal failure N17.9 Acute renal failure type: unspecified Hypomagnesemia E83.42 Diarrhea R19.7 Diarrhea type: unspecified type Acute hypokalemia E87.6 Elevated lipase R74.8 Gallbladder sludge K82.8 Benign essential hypertension I10 Dyslipidemia E78.5 Depression F32.9 COPD (chronic obstructive pulmonary disease) J44.9 DVT prophylaxis Z29.[address] of liver R93.2 (1) Acute renal failure Acute renal failure type: unspecified Qualified Code(s): N17.9 - Acute kidney failure, unspecified (2) Diarrhea Diarrhea type: unspecified type Qualified Code(s): R19.7 - Diarrhea, unspecified
[2021-03-09] MEDS ORDERED: POTASSIUM CHLORIDE CRTAB 20 MEQ TABCR PO STA (15:12)
[2021-03-09] MEDS ORDERED: METOPROLOL SUCC 50MG EXT REL TAB PO SCH (15:30)
[2021-03-09] MEDS ORDERED: MAGNESIUM SULFATE / D5W 1 GM/100 ML BAG IV ONE (15:30)
[2021-03-09] MEDS: oxyCODONE HCL IR 5 MG TAB (IMMEDIATE RELEASE) PO PRN (20:51)
[2021-03-10 05:52] LABS: Basophils # (auto) 0.03 K/uL (0-0.2); Basophils % (auto) 0.4 %; Eosinophils # (auto) 0.19 K/uL (0-0.5); Eosinophils % (auto) 2.2 %; Hematocrit (blood only) 33.1 % (37-47); Hemoglobin 11.1 g/dL (12.0-16.0); Immature Granulocytes # (auto) 0.13 K/uL (0.00-0.02); Immature Granulocytes % (auto) 1.5 %; Lymphocytes # (auto) 3.42 K/uL (1.2-3.4); Lymphocytes % (auto) 39.9 %; Mean Corpuscular Hemoglobin 33.2 pg (25-34); Mean Corpuscular Hgb Conc 33.5 g/dL (32-36); Mean Corpuscular Volume 99.1 fL (80-100); Mean Platelet Volume 9.2 fL (7.4-10.4); Monocytes # (auto) 1.16 K/uL (0.11-0.59); Monocytes % (auto) 13.5 %; Neutrophils # (auto) 3.64 K/uL (1.4-6.5); Neutrophils % (auto) 42.5 %; Platelet Count 320 K/uL (130-400); RDW Standard Deviation 50.1 fL (36.4-46.3); Red Blood Count 3.34 M/uL (4.2-5.4); White Blood Count 8.57 K/uL (4.8-10.8)
[2021-03-10 06:21] LABS: Albumin Level 3.1 gm/dl (3.4-5.0); BUN Creatinine Ratio 25.1 (10-20); Calcium 9.1 mg/dl (8.5-10.1); Creatinine Clr Calc Pharmacy 105.4 ml/min; Est GFR (African American) 117.9 ml/min; Est GFR (Non-African American) 101.7 ml/min; Magnesium 1.9 mg/dl (1.8-2.4); Potassium 3.3 mmol/L (3.5-5.1)
[2021-03-10 06:24] LABS: Bilirubin,Total 0.9 mg/dl (0.2-1); Total Protein 6.1 gm/dl (6.4-8.2)
[2021-03-10] MEDS: NICOTINE 14 MG/24 HR PATCH TD SCH (08:04)
[2021-03-10] MEDS: buPROPion XL 150 MG TABCR PO SCH (08:04)
[2021-03-10] MEDS: ASPIRIN 81 MG ECTAB PO SCH (08:04)
[2021-03-10] MEDS: CYANOCOBALAMIN 500 MCG TABLET (VITAMIN B-12) PO SCH (08:05)
[2021-03-10] MEDS: HEPARIN SOD 5,000 UNIT/0.5 ML VIAL SQ SCH (08:05)
[2021-03-10] MEDS: CHOLECALCIFEROL 1,000 UNITS 25 MCG TAB PO SCH (08:05)
[2021-03-10] MEDS ORDERED: POTASSIUM CHLORIDE CRTAB 20 MEQ TABCR PO STA (08:20)
--- NOTE | 2021-03-10 11:54 | Discharge Summary ---
Date of Service March 10, 2021 Admission HPI Per Admitting Provider The patient is a 61-year-old female with a past medical history including intra- articular fracture of the distal end of the left radius with volar angulation, macrocytic anemia, dyslipidemia, hypertension, anxiety, allergic rhinitis and arthritis. She presents with symptoms as noted above. She reports that she has had right upper quadrant and right sided back pain on and off for 5 years. She came to the emergency department today at the insistence of her daughter, who is a PA. Work-up in the emergency department included the following significant abnormal laboratories: WBC 15.58, sodium 131, potassium 3.0, creatinine 4.70, BUN 63, AST 1733, ALT 1844, lipase 1007, magnesium 0.9. Imaging studies: CT of abdomen and pelvis without contrast revealed the following: Gallbladder sludge. Hypodensities in the liver measuring up to 1.2 cm that are indeterminate, with recommendation for liver protocol CT or MRI on a nonemergent basis. Principal Diagnosis Diarrheal illness, Hypotension, Acute liver and kidney injury Hypomagnesemia, hypokalemia Discharge Exam Constitutional WD/WN, vitals as above Eyes + anicteric sclerae ENMT external ear and nose normal, oropharynx normal Neck trachea midline, no thyromegaly Respiratory normal respiratory effort, lungs clear to auscultation Cardiovascular RRR, no murmur, no edema Chest (Breasts) Chest: normal inspection of chest Gastrointestinal (Abdomen) normal bowel sounds, soft, nontender, no hepatosplenomegaly Musculoskeletal Extremities: extremities normal to inspection; no cyanosis and no clubbing Skin no rashes, warm and dry Neurologic moves all extremities and awake; no focal motor deficits Psychiatric A+Ox3, euthymic affect Lymphatic no lymphedema Discharge Data Allergies Allergy/AdvReac Type Severity Reaction Status Date / Time aspirin AdvReac Intermediate HIGHER Verified 03/07/21 22:06 DOSES--HIVES, LOW DOSE--OK Consultations 03/07/21 22:28 ED Decision to Admit Stat 03/08/21 08:39 Consult Gastroenterology Routine Ordered Studies 03/07/21 22:39 CT abd pelvis wo con Urgent Hospital Course (1) Transaminitis: Presented to the ER with 1 week of severe diarrhea, lightheadedness, hypotension She was found to have severely elevated AST and ALT as well as acute kidney injury Hepatitis panel is negative, nonobstructive picture of LFTs INR slightly elevated at 1.2 CT abdomen/pelvis only with gallbladder sludge noted on overnight radiology read but otherwise normal except for 1.2 cm lesions in the liver that are indeterminate The patient has no abdominal pain at all Most likely secondary to acute liver injury from hypotension secondary to hypovolemia from severe diarrhea Tylenol level is 4 Significantly improved with BP support and aggressive IVF resuscitation. AST and ALT peaked in 4000s and now both trending back down to 800s on day of discharge. TBili remains normal Lipase also elevated secondary to poor perfusion but is also trending downward -Follow LFTs, lipase as outpt in 3 days and then again until normalized -Supportive care and maintain blood pressure -Held all home antihypertensives, but now elevated BP--> restarted Toprol XL 50mg daily and can restart home losartan and half dose of amlodipine on discharge; continue to hold home HCTZ -INR 1.2, platelets normal, creatinine back to normal -HIDA scan performed which is negative -Zosyn being given empirically- leukocytosis likely due to stress response but no infection noted and no colitis on CT-Zosyn discontinued -Appreciate GI consultation -continue holding atorvastatin until LFTs normalized as outpt -Okay to give Tylenol up to 2 g/day as needed for pain -EDWARD, anti smooth muscle and anti mitochondrial ab pending at time of dc (2) Acute renal failure: Acute kidney failure with ATN-now resolved Secondary to hypovolemia from severe diarrhea Creatinine 4.7 on arrival and now normal with IV fluid hydration discontinued IV fluids Follow BMP as outpt Renally dose medications as appropriate -continue to hold home HCTZ, but can restart telmisartan (3) Hypomagnesemia: Severe at 0.9 on admission, secondary to significant diarrhea now resolved with IV magnesium replacement aggressively Follow magnesium level as outpt (4) Diarrhea: As noted above, with 6 to 7 days of severe diarrhea No recent travel, camping, eating out at restaurants, sick contacts. Covid-19 is negative Could be infectious most likely-bacterial, viral, parasite -Check stool culture-pending but no growth at time of discharge C. difficile negative - ova and parasites pending Seems to be resolving Supportive care, electrolyte replacement (5) Acute hypokalemia: Secondary to GI losses Replace with po KCl today and follow BMP as outpt Replaced magnesium (6) Elevated lipase: Lipase elevated at 1700 and now trending downward No pancreatitis seen on CT of the abdomen/pelvis Most likely elevation secondary to hypoperfusion from hypotension Has no abdominal pain tolerating low fiber diet (7) Gallbladder sludge: HIDA scan negative As above (8) Benign essential hypertension: With hypotension in the 70s systolic on arrival, held all home meds now as above, BPs rising restart meds as above (9) Dyslipidemia: Holding home statin for transaminitis (10) Depression: Continue home meds (11) COPD (chronic obstructive pulmonary disease): No acute issues Smoking cessation counseling Nicotine patch as needed Inhalers as needed (12) Abnormal CT of liver: 1.2 cm lesions x [address], nonspeciifc GI plans to see as outpt and check liver CT/MRI as outpt (13) DVT prophylaxis: Heparin SQ Disposition-dc to home Total Time Total Time Spent Total Time Spent (In Minutes): 35 min Discharge Plan Discharge Items Patient Disposition: Home - Self-Care Reason For Visit: ARF, TRANSAMINITIS, ELEVATED LIPASE, HYPOKALEMIA Discharge Diagnosis: Diarrheal illness, Acute liver injury, Acute kidney injury, Hypotension, Hypokalemia, Hypomagnesemia Condition on Discharge: Good Activity: Resume your previous activity Non-emergency contact: Primary Care Provider and Architectural Project Captain Call non-emergency contact if: you have any medication questions and your symptoms worsen Follow-up/Referrals: David Boyle DO [Physician] - 03/24/21 3:40 pm (Follow up within 2-3 weeks) Vicki Mckeon DO [Primary Care Provider] - 03/27/21 4:20 pm Diet: Low Fiber Ambulatory Orders: Comprehensive Metabolic Panel (Routine) Timeframe: 3 Days Location: Determined by Patient Ordered By: Alicia Tubbs Lipase (Routine) Timeframe: 3 Days Location: Determined by Patient Ordered By: Alicia Tubbs Magnesium (Routine) Timeframe: 3 Days Location: Determined by Patient Ordered By: Alicia Tubbs Addtl Attending Provider Instructions: Continue to stay well hydrated, and drink fluids with electrolytes like Gatorade. Please have blood work drawn on Saturday to recheck your liver and electrolytes. Follow up with GI in 2-3 weeks. They will order a follow up scan of your liver to further evaluate those 2 spots seen here on CT. Your stool studies to check for infection were still pending at the time of discharge as well as a few autoimmune hepatitis studies. Your PCP can follow up on these results when they are available. Your blood pressure was very low on admission and your blood pressure medications were HELD. It is ok to take your metoprolol and losartan, but please cut your amlodipine in HALF for now and HOLD your HCTZ for now. Check your blood pressure twice a day and if it is persistently greater than 160/90, then it is ok to increase your amlodipine back to 10mg. Do NOT take the HCTZ until after you make sure your potassium levels are back to normal with the repeat blood work. Pending Studies at Discharge: Yes Studies:: Autoimmune hepatitis studies, Stool culture, Stool ova and parasites Stand-Alone Forms: [facility], Smoking Cessation Medications and DC Order Prescriptions: Continued telmisartan 80 mg tablet 80 mg PO DAILY Qty: 90 RF: 1 albuterol sulfate 90 mcg/actuation HFA aerosol inhaler 2 puff inhalation Q4H PRN (Reason: shortness of breath) Qty: 8.5 RF: 3 metoprolol succinate 50 mg tablet extended release 24 hr 50 mg PO DAILY Qty: 90 RF: 1 trazodone 50 mg tablet 50 mg PO HS Qty: 90 RF: 1 aspirin [Adult Low Dose Aspirin] 81 mg tablet,delayed release (DR/EC) 81 mg PO DAILY RF: 0 acetaminophen 500 mg tablet 500 - 1,000 mg PO DIRECTED PRN (Reason: fever or pain) RF: 0 cyanocobalamin (vitamin B-12) 500 mcg tablet 500 mcg PO DAILY RF: 0 cholecalciferol (vitamin D3) 2,000 unit capsule 2,000 units PO DAILY RF: 0 escitalopram oxalate 10 mg tablet 10 mg PO DAILY Qty: 30 RF: 2 bupropion HCl 150 mg tablet extended release 24 hr 150 mg PO QAM Qty: 7 RF: 0 Changed amlodipine 10 mg tablet 5 mg PO HS Qty: 90 RF: 1 Discontinued hydrochlorothiazide 25 mg tablet 25 mg PO DAILY Qty: 90 RF: 1 atorvastatin 20 mg tablet 20 mg PO HS RF: 0 Discharge Orders: Discharge Order (Routine); Ordered 03/10/21 Ordered By: Alicia Tubbs Admission Data Admit Date/Time: 03/07/21 23:41 Attending Provider: Alicia Tubbs Admit Provider: Terrance Retana Primary Care Provider: Vicki Mckeon Other Providers: Terrance Retana ; Case,David FernandaPaul Coding Level of Care Code D/C DAY MANAGEMENT >30 MINS Diagnoses Transaminitis R74.01 Acute renal failure N17.9 Acute renal failure type: unspecified Hypomagnesemia E83.42 Diarrhea R19.7 Diarrhea type: unspecified type Acute hypokalemia E87.6 Elevated lipase R74.8 Gallbladder sludge K82.8 Benign essential hypertension I10 Dyslipidemia E78.5 Depression F32.9 COPD (chronic obstructive pulmonary disease) J44.[address] of liver R93.2 DVT prophylaxis Z29.9
[2021-03-13 15:27] LABS: Anti Mitochondrial Antibody NEGATIVE (NEGATIVE); Anti Nuclear Antibody Screen NEGATIVE (NEGATIVE); Smooth Muscle Antibody POSITIVE (NEGATIVE)
[2021-03-15 13:41] LABS: Smooth Muscle Ab Titer 1:20 titer (<1:20)
== END 2021-03-10 12:30 | disposition home or self-care (01) | DRG 391 ==
LOC: ED 20:04 → 2N 23:41 → SUATTDRO 23:41 → 2N 03-08 00:25